=== PATIENT | female | born 1955 | race Caucasian/White ===

== ENCOUNTER 2017-07-25 13:59 | Outpatient (CLI) | payer OTHER | END 2017-07-25 14:00 | disposition home or self-care (01) | LOC: BICMAMMO 13:59 | PROVIDERS: ATTEND Family Medicine | DX: Z12.31 Encounter for screening mammogram for malignant neoplasm of breast (principal) | CPT/HCPCS: 77063; 77067 ==

== ENCOUNTER 2018-08-12 13:14 | Outpatient (CLI) | payer OTHER | END 2018-08-12 13:15 | disposition home or self-care (01) | LOC: BICMAMMO 13:14 | PROVIDERS: ATTEND Family Medicine | DX: Z12.31 Encounter for screening mammogram for malignant neoplasm of breast (principal); R92.1 Mammographic calcification found on diagnostic imaging of breast | CPT/HCPCS: 77063; 77067 ==

== ENCOUNTER 2019-05-11 14:07 | Inpatient (IN) | payer OTHER ==
[2019-05-11] MEDS ORDERED: Aspirin Chewable 81 MG TAB ONE (14:24)
[2019-05-11] MEDS ORDERED: Nitroglycerin 2% Ointment 1 INCH/1 GM Packet ONE (14:24)
[2019-05-11 14:52] LABS: Band 2 % (5-11); Eosinophils 2 % (0-10); Hemoglobin 14.1 g/dL (12.0-16.0); Lymphocytes 2 % (21-51); MDiff Complete? YES; Mean Corpuscular HGB CONC 36.3 g/dL (32.0-36.0); Mean Corpuscular Hemoglobin 30.7 pg (27.0-31.0); Mean Corpuscular Volume 84.4 fL (78.0-98.0); Mean Platelet Volume 7.1 fL (7.4-10.4); Monocytes 8 % (0-10); Neutrophil 85 % (42-75); Platelet Count 346 thou/uL (130-400); Platelet Morphology Comment Appears Adequate; RBC Distribution Width 11.4 % (11.5-14.5); Reactive Lymphocytes 1 % (0-10); Reflex for Review?? YES; Toxic Granulation MODERATE; Vacuoles SLIGHT; White Blood Cell (WBC) Count 22.9 thou/uL (4.8-10.8)
--- NOTE | 2019-05-11 14:56 | RAD ---
RADIOGRAPH CHEST 1 VIEW: DATE: 05/11/2019 HISTORY: 64-year-old female with chest pain FINDINGS: There are no airspace densities, pulmonary edema, pneumothorax, or cardiomegaly. The lateral costophr enic angles are sharp. IMPRESSION: No acute cardiopulmonary findings.
[2019-05-11 15:00] LABS: ALT (SGPT) 55 U/L (8-55); AST (SGOT) 42 U/L (5-34); Albumin 4.3 g/dL (3.4-4.8); Alkaline Phosphatase 79 U/L (40-110); Anion Gap 20 mmol/L (10-20); BUN (Urea Nitrogen) 5 mg/dL (9.8-20.1); Bilirubin, Total 1.1 mg/dL (0.2-1.2); CK (CPK) 99 U/L (29-168); Calc. Creatinine Clearance 0 mL/min (70-130); Calcium 9.5 mg/dL (7.8-10.44); Carbon Dioxide 27 mmol/L (23-31); Estimated GFR-MDRD 86; Globulin 3.1 g/dL (2.4-3.5); Glucose 119 mg/dL (80-115); Lipase 15 U/L (8-78); Protein, Total 7.4 g/dL (6.0-8.3)
[2019-05-11 15:09] LABS: Chloride 72 mmol/L (98-107); Potassium 2.5 mmol/L (3.5-5.1); Sodium 116 mmol/L (136-145)
[2019-05-11] MEDS ORDERED: Potassium Chloride 20 MEQ/100 ML PREMIX BAG ONE (15:15)
[2019-05-11] MEDS ORDERED: Potassium Chloride 20 MEQ TAB ONE (15:15)
[2019-05-11 15:44] LABS: Anion Gap 18 mmol/L (10-20); BUN (Urea Nitrogen) 5 mg/dL (9.8-20.1); Calc. Creatinine Clearance 0 mL/min (70-130); Calcium 9.5 mg/dL (7.8-10.44); Carbon Dioxide 28 mmol/L (23-31); Estimated GFR-MDRD Greater than 90; Glucose 113 mg/dL (80-115)
[2019-05-11 15:46] LABS: Chloride 72 mmol/L (98-107); Magnesium 1.3 mg/dL (1.6-2.6); Phosphorus 3.7 mg/dL (2.3-4.7); Potassium 2.5 mmol/L (3.5-5.1); Sodium 115 mmol/L (136-145)
[2019-05-11 16:38] LABS: Bilirubin Negative (Negative); Blood, Urine Negative (Negative); Clarity Slightly Cloudy (Clear); Glucose, Urine (Dipstick) Negative (Negative); Leukocyte Small (Negative); Nitrite Negative (Negative); Protein, Urine (Dipstick) Trace mg/dL (Neg-Trace); Urobilinogen 0.2 mg/dL (Less than 2)
[2019-05-11 16:41] LABS: RBC/HPF 0-3 HPF (0-3)
[2019-05-11 16:42] LABS: Bacteria/HPF 1+ HPF (None Seen); Squamous Epithelial 0-3 HPF (0-3)
[2019-05-11 17:56] LABS: Troponin I 0.024 ng/mL (< 0.028)
[2019-05-11] MEDS ORDERED: NS 0.9% w/ 20 MEQ KCL 1,000 ML IV SCH (18:15)
[2019-05-11 19:16] LABS: Anion Gap 17 mmol/L (10-20); BUN (Urea Nitrogen) 6 mg/dL (9.8-20.1); Calc. Creatinine Clearance 0 mL/min (70-130); Calcium 9.6 mg/dL (7.8-10.44); Carbon Dioxide 27 mmol/L (23-31); Chloride 75 mmol/L (98-107); Estimated GFR-MDRD 82; Glucose 127 mg/dL (80-115); Potassium 3.2 mmol/L (3.5-5.1)
[2019-05-11 19:23] LABS: Sodium 116 mmol/L (136-145)
[2019-05-11] MEDS ORDERED: Guaifenesin DM 100-10/5 ML UDCUP PO PRN (20:16)
[2019-05-11] MEDS ORDERED: Bisacodyl 10 MG SUPP PR PRN (20:16)
[2019-05-11] MEDS ORDERED: Acetaminophen 325 MG TAB PO PRN (20:16)
[2019-05-11] MEDS ORDERED: Ondansetron PF 4 MG/2 ML Vial IVP PRN (20:16)
[2019-05-11] MEDS ORDERED: Senokot S 8.6-50 MG TAB PO PRN (20:16)
[2019-05-11] MEDS ORDERED: Sodium Chloride 0.9% 1,000 ML IV SCH (20:30)
--- NOTE | 2019-05-11 20:56 | HP ---
REASON FOR ADMISSION: Chest pain, hyponatremia, hypokalemia, hypochloremia, possible urinary tract infection, and sepsis. HISTORY OF PRESENTING ILLNESS: The patient gives history of developing retrosternal chest pain around 11:00 a.m. This was when she got up. This pain was 8/10 in intensity and was radiating to the left shoulder and left upper extremity. She also had some tingling sensation in her fingers. She initially thought this was something to do with the reflex, took a tablet of Prilosec. As the pain did not go away for nearly 2 hours, she made it to [facility] Emergency Room. On arrival at [facility] ER, the patient had multiple electrolyte abnormalities including a sodium of 116, potassium of 2.5, chloride of 72, magnesium was 1.3. No complaints of diarrhea, nausea, or vomiting. She admits to drinking anywhere from 5 to 10 beers daily. She has been doing this for the last 5 to 6 years. The patient also admits that she has had low sodium in the past and has had workup for the same done before. Currently, she is chest pain free. No complaints of shortness of breath, palpitation, PND, or orthopnea. The last stress test was in the early s and was negative as far as she knows. PAST MEDICAL AND SURGICAL HISTORY: History of hypertension, dyslipidemia, obesity, and tonsillectomy. CURRENT MEDICATIONS: The patient is on aspirin 81 mg p.o. daily, Tekturna 150 mg p.o. daily, chlorthalidone 100 mg daily, amlodipine 10 mg daily, Prilosec 20 mg twice daily, and Crestor 10 mg daily. ALLERGIES: TO CEPHALOSPORINS, WHICH CAUSES HEADACHE; IODINE, AND SEA FOOD. PERSONAL HISTORY: Drinks 5 to 10 beers daily. She has been doing this for the last 5 to 6 years now. She quit smoking in 2015, prior to which has smoked a pack and a half for nearly 30 years. Does not abuse drugs. She is currently vaping menthol. FAMILY HISTORY: Mother at the age of 69 years. She has had history of hypertension, carotid endarterectomy, and dyslipidemia. Father of diabetes and its complications at the age of 83. He has also had history of coronary artery disease. CODE STATUS: Full. Power of finance attorney is her . REVIEW OF SYSTEMS: CONSTITUTIONAL: Negative for weight loss or gain, ability to conduct usual activities. SKIN: Negative for rash, itching. EYES: Negative for double vision, pain. ENT/MOUTH: Negative for nose bleeding, neck stiffness, pain, tenderness. CARDIOVASCULAR: Negative for palpitations, dyspnea on exertion, orthopnea. RESPIRATORY: Negative for shortness of breath, wheezing, cough, hemoptysis, fever or night sweats. GASTROINTESTINAL: Negative for poor appetite, abdominal pain, heartburn, nausea , vomiting, constipation, or diarrhea. GENITOURINARY: Negative for urgency, frequency, dysuria, nocturia. MUSCULOSKELETAL: Negative for pain, swelling. NEUROLOGIC/PSYCHIATRIC: Negative for anxiety, depression. ALLERGY/IMMUNOLOGIC: Negative for skin rash, bleeding tendency. PHYSICAL EXAMINATION: GENERAL: The patient is a 64-year-old female, who is currently not in any acute distress. VITAL SIGNS: Blood pressure 113/68, pulse 88 per minute, respiratory rate 18 per minute, temperature 97.8 degrees Fahrenheit, saturating 96% on room air. NECK: Supple. No elevated JVD. HEENT: Eyes; extraocular muscles intact. Pupils reacting to light. Oral cavity, mucous membranes are dry. No exudates or congestion. CARDIOVASCULAR SYSTEM: S1, S2 heard. Regular rhythm,murmur+. RESPIRATORY SYSTEM: Air entry 1+ bilateral. Scattered rhonchi plus no rales or wheezes. ABDOMEN: Soft bowel sounds heard. No tenderness, rigidity, or guarding. EXTREMITIES: No peripheral edema or calf tenderness. VASCULAR SYSTEM: The patient has varicosities in both lower extremities. No ischemic ulcers or gangrene. CENTRAL NERVOUS SYSTEM: No gross focal motor deficits noted. The patient is alert, awake, and oriented well. PSYCHIATRIC SYSTEM: The patient's mood is euthymic. No hallucinations or delusions. LABORATORY DATA: EKG done shows normal sinus rhythm at 90 beats per minute. There are signs of early LVH, questionable Q-waves in V1 and V2. Sodium on arrival was 116, potassium 2.5, chloride 72, serum bicarb 27, BUN 5, creatinine 0.6, magnesium 1.3, phosphorus 3.7, calcium 9.5, and serum glucose 119. Lactic acid 0.7, AST 42, ALT 55, alkaline phosphatase 79, total bilirubin 1.1, troponin I x2 is negative. Albumin is 4.3. TSH 0.97. Serum stat cortisol is 17.3 at 3:25 p.m. UA shows small leukocyte esterase with 4 to 6 wbc's, and 1+ bacteria. Chest x-ray done shows no acute cardiopulmonary abnormalities. CLINICAL IMPRESSION AND PLAN: The patient will be admitted to [facility] for critical low sodium around 116 with hypokalemia, hypochloremia, and hypomagnesemia as well. The patient also has urinary tract infection. Her white count is 22 with 85% neutrophils. She will be on normal saline at 100 mL per hour. The patient has history of alcohol abuse as well. She will follow [facility] protocol. Blood and urine cultures have been obtained and she will be on empiric Levaquin. Serum and urine osmolalities are currently pending. Urine sodium and electrolytes are pending at present. Clinically, the patient has murmur, likely aortic stenosis, and we will obtain an echo with 2D Doppler for further clarification on this. We will continue her aspirin, Norvasc, aliskiren, omeprazole, multivitamin, and Crestor as before. Her chlorthalidone will be held for now. Nephrology consultation with Dr. Ken has been obtained from [facility] Emergency Room. We will repeat TSH levels in the morning. Renal function panel in the morning. We will continue to closely monitor her in [facility] for now. Neurologically, the patient is intact at present. Job ID: [id number] [facility]
[2019-05-11] MEDS ORDERED: Sodium Chloride 256.5 MEQ in Sterile Water Injection 936 ML IV SCH (21:00)
[2019-05-11] MEDS: Potassium Chloride 20 MEQ TAB PO SCH (21:07)
[2019-05-11] MEDS: Magnesium Oxide 400 MG TAB PO SCH (21:08)
[2019-05-11] MEDS: Amlodipine 10 MG TAB PO SCH (21:08)
[2019-05-11] MEDS: Multivitamin W/ Minerals 1 TAB PO SCH (21:08)
[2019-05-11] MEDS: Aspirin 81 mg Enteric Coated Tablet PO SCH (21:08)
[2019-05-11] MEDS: Rosuvastatin 10 MG TAB PO SCH (21:08)
[2019-05-11 21:22] VITALS: BMI 32.1
[2019-05-11 21:22] LABS: Troponin I 0.031 ng/mL (< 0.028)
--- NOTE | 2019-05-11 22:26 | CON ---
DATE OF CONSULTATION: REQUESTING PHYSICIAN: Enrique Duron MD REASON FOR CONSULTATION: Severe hyponatremia. IMPRESSION: Severe hyponatremia likely in the context of chlorthalidone usage; however, cannot completely rule out other potential etiologies including syndrome of inappropriate antidiuretic hormone secretion. PLAN: 1. Obviously discontinue chlorthalidone permanently. 2. Given the fact that we do not know if SIADH is involving the severe hyponatremia and also the fact that the patient is somewhat symptomatic, we will start this patient on hypertonic saline with close monitoring of the sodium level. 3. The patient can be on high-protein diet. HISTORY OF PRESENT ILLNESS: A 64-year-old female patient, who presented with chest discomfort radiating to the left shoulder, tingling sensation, dizziness, on presentation to the ER was noted with severe low sodium of 116. As a result of these, decision was taken to involve Renal in the management of this case. According to the patient, sometime last year when she did a blood work, doctor told her sodium was somewhat low, but no changes were made to the patient's medications. In any case, the patient denies any nausea, vomiting, or diarrhea. The patient is noted to be on chlorthalidone. PAST MEDICAL HISTORY: Significant for hypertension, dyslipidemia, obesity, and status post tonsillectomy. ALLERGIES TO: Cephalosporins, iodine and sea food. SOCIAL HISTORY: Remote tobacco use. Quit in 2014. Denies alcohol; however, drinks 5 to 10 beers on daily basis. FAMILY HISTORY: Not significantly related to present illness. REVIEW OF SYSTEMS: As documented in the body of the history. All the other systems were reviewed and found not to be significantly related to presenting illness. OBJECTIVE: GENERAL: On examination, the patient was found not to be in any obvious distress. VITAL SIGNS: Afebrile, temperature 97.7, hemodynamically stable. HEENT: Unremarkable. CARDIOVASCULAR: First and second heart sounds were heard. RESPIRATORY SYSTEM: Clear to auscultation. DIGESTIVE SYSTEM: Revealed a benign abdomen. Positive bowel sounds. EXTREMITIES: No peripheral edema. SKIN: No new gross rash. LYMPHATICS: No peripheral lymphadenopathy. SUMMARY: A 64-year-old female patient, who presented here with severe hyponatremia, possibly in the context of chlorthalidone usage, but cannot completely rule out other potential etiologies including, but not limited to SIADH and beer potomania. Thank you for this consultation. We will follow with you. Job ID: [id number]
[2019-05-11 23:05] LABS: Potassium, Urine Less than 10.0 mmol/L; Sodium, Urine Less than 20 mmol/L (Not Available)
[2019-05-11 23:26] LABS: Sodium 119 mmol/L (136-145)
[2019-05-12] MEDS: Potassium Chloride 20 MEQ TAB PO SCH ×2 (02:07→09:14)
[2019-05-12] MEDS ORDERED: Sodium Chloride 256.5 MEQ in Sterile Water Injection 936 ML IV SCH (03:15)
[2019-05-12 06:41] LABS: Anion Gap 13 mmol/L (10-20); BUN (Urea Nitrogen) 8 mg/dL (9.8-20.1); BUN/Creatinine Ratio 10.67; Calc. Creatinine Clearance 107 mL/min (70-130); Carbon Dioxide 29 mmol/L (23-31); Chloride 86 mmol/L (98-107); Estimated GFR-MDRD 78; Glucose 107 mg/dL (80-115); Phosphorus 2.5 mg/dL (2.3-4.7); Potassium 3.5 mmol/L (3.5-5.1); Sodium 124 mmol/L (136-145)
[2019-05-12 07:26] LABS: #Basophils 0.1 thou/uL (0.0-0.2); #Eosinphils 0.1 thou/uL (0.0-0.7); #Lymphocytes 1.6 thou/uL (1.20-3.40); #Neutrophils 6.7 thou/uL (1.40-6.50); %Basophils 0.8 % (0.0-1.0); %Eosinophils 1.3 % (0.0-10.0); %Lymphocytes 16.7 % (21.0-51.0); %Monocytes 10.5 % (0.0-10.0); %Neutrophils 70.7 % (42.0-75.0); Hemoglobin 12.4 g/dL (12.0-16.0); Mean Corpuscular Hemoglobin 30.7 pg (27.0-31.0); Mean Corpuscular Volume 87.8 fL (78.0-98.0); Mean Platelet Volume 7.3 fL (7.4-10.4); Platelet Count 314 thou/uL (130-400); RBC Distribution Width 12.8 % (11.5-14.5); Red Blood Cell (RBC) Count 4.04 mill/uL (4.20-5.40); White Blood Cell (WBC) Count 9.5 thou/uL (4.8-10.8)
[2019-05-12] MEDS ORDERED: Enoxaparin Sodium 40 MG/0.4 ML SYRINGE SC SCH (09:00)
[2019-05-12] MEDS ORDERED: FLU VACC QS2019-20(6MOS UP)/PF 60 MCG/0.5 ML SYRINGE IM ONE (09:00)
[2019-05-12] MEDS: Magnesium Oxide 400 MG TAB PO SCH ×2 (09:14→21:09)
[2019-05-12] MEDS: Folic Acid 1 MG TAB PO SCH (09:14)
[2019-05-12] MEDS: Thiamine 100 MG TAB PO SCH (09:14)
[2019-05-12] MEDS: Aliskiren Hemifumarate 300 mg Tablet PO SCH (09:14)
[2019-05-12] MEDS: Sodium Chloride 256.5 MEQ in Sterile Water Injection 936 ML IV SCH (09:46)
--- NOTE | 2019-05-12 10:14 | CON ---
DATE OF CONSULTATION: HISTORY OF PRESENT ILLNESS: Antoinette Rivas is a 64-year-old female, who was admitted to the hospital. She woke up and had severe epigastric, abdominal and chest pain associated with some shortness of breath. Also had some left shoulder pain, arm pain, numbing and tingling. She was found to have serum sodium of 116 with a urine sodium less than 20, suggestive of volume depletion probably secondary to diuretic that she is taking. She is a former smoker, a pack and half a day for 30 years. No prior history of TB, pneumonia, or bronchial asthma. PAST MEDICAL HISTORY: Hypertension, probably history of murmur. PREVIOUS SURGERIES: Tonsillectomy. SOCIAL HISTORY: Tobacco as noted. Alcohol, 5 to 6 beers a day. HOME MEDICATIONS: Include: 1. Nasacort. 2. B12. 3. Cranberry. 4. Tekturna 300. 5. Crestor 10. 6. Prilosec 20. 7. Chlorthalidone 25. 8. Aspirin. 9. Amlodipine 10. ALLERGIES: IODINE, CEPHALOSPORIN. 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 REVIEW OF SYSTEMS: 10-point negative. PHYSICAL EXAMINATION: GENERAL: No acute distress. VITAL SIGNS: Temperature 97, blood pressure 109/71, pulse respiratory rate 18. CHEST: No wheezing. No crackles. CARDIAC: Normal S1 and S2. No gallops. Loud aortic stenotic murmur all over the right upper sternal border and neck. ABDOMEN: Soft. Extremities: No edema. LABORATORY DATA: Sodium is 124 today. She was started on hypertonic saline by Nephrology who was consulted. IMPRESSION: Hyponatremia, volume depleted. No evidence of SIADH. Aortic stenosis. Hypertension. More than likely sodium due to the diuretic she is taking. Continue slow hydration. Supportive care. Input from Cardiology. We will follow while in the MICU. Consultation note, 70 minutes, 50% direct patient care. Job ID: [id number]
[2019-05-12 12:17] LABS: Sodium 127 mmol/L (136-145)
--- NOTE | 2019-05-12 14:01 | PDOC.HOSPP ---
- Subjective Encounter Date: 05/12/19 Encounter Time: 08:00 Subjective: awake, responds well to verbal stimuli - Objective Vital Signs & Weight: Vital Signs (12 hours) Temp BP 05/12/19 11:15 97.3 F L 05/12/19 07:53 109/71 05/12/19 07:24 97.8 F 05/12/19 04:00 99/71 05/12/19 03:29 98.4 F Weight Weight 193 lb Most Recent Monitor Data Heart Rate from ECG 93 NIBP 146/74 NIBP BP-Mean 98 Respiration from ECG 15 SpO2 94 I&O: 05/11/19 05/12/19 05/13/19 06:59 06:59 06:59 Intake Total 1413 Output Total 3000 Balance -1587 Result Diagrams: 05/12/19 05:28 05/12/19 11:45 Hospitalist ROS - Medication Medications: Active Medications Generic Name Dose Route Start Last Admin Trade Name Freq PRN Reason Stop Dose Admin Aliskiren 300 mg 05/12/19 09:00 05/12/19 09:14 Tekturna PO 300 mg DAILY JOSSE Administration Amlodipine Besylate 10 mg 05/11/19 21:00 05/11/19 21:08 Norvasc PO 10 mg QPM JOSSE Administration Aspirin 81 mg 05/11/19 21:00 05/11/19 21:08 Ecotrin PO Not Given QPM JOSSE Enoxaparin Sodium 40 mg 05/12/19 09:00 05/12/19 09:14 Lovenox SC 40 mg 0900 JOSSE Administration Folic Acid 1 mg 05/12/19 09:00 05/12/19 09:14 Folvite PO 1 mg DAILY JOSSE Administration Levofloxacin 500 mg/ Device 100 mls @ 100 mls/hr 05/11/19 21:00 05/11/19 21: 06 IVPB 100 mls 2100 JOSSE Administration Sodium Chloride 256.5 meq/ 1,000.125 mls @ 50 mls/hr 05/12/19 09:18 05/12/19 09:46 Sterile Water IV Not Given .Q20H1M JOSSE Iron/Minerals/Multivitamins 1 tab 05/11/19 21:00 05/11/19 21:08 Theragran M PO 1 tab QPM JOSSE Administration Magnesium Oxide 400 mg 05/11/19 21:00 05/12/19 09:14 Magnesium Oxide PO 400 mg BID JOSSE Administration Pantoprazole Sodium 40 mg 05/11/19 21:00 05/12/19 09:14 Protonix PO 40 mg BID JOSSE Administration Rosuvastatin Calcium 10 mg 05/11/19 21:00 05/11/19 21:08 Crestor PO 10 mg QPM JOSSE Administration Thiamine HCl 100 mg 05/12/19 09:00 05/12/19 09:14 Thiamine PO 100 mg DAILY JOSSE Administration - Exam General Appearance: NAD, awake alert Eye: PERRL, anicteric sclera ENT: no oropharyngeal lesions, moist mucosa Neck: supple, no JVD Heart: RRR, no gallops, murmur present Respiratory: no wheezes, no rales Gastrointestinal: soft, non-tender, non-distended, normal bowel sounds Extremities: no cyanosis, no edema Neurological: cranial nerve grossly intact, no focal deficits Psychiatric: normal affect, A&O x 3 Hosp A/P (1) Hyponatremia Code(s): E87.1 - HYPO-OSMOLALITY AND HYPONATREMIA Status: Acute (2) Hypokalemia Code(s): E87.6 - HYPOKALEMIA Status: Acute (3) Hypochloremia Code(s): E87.8 - OTH DISORDERS OF ELECTROLYTE AND FLUID BALANCE, NEC Status: Acute (4) Dehydration Code(s): E86.0 - DEHYDRATION Status: Acute (5) UTI (urinary tract infection) Status: Acute Qualifiers: Urinary tract infection type: acute cystitis Hematuria presence: without hematuria Qualified Code(s): N30.00 - Acute cystitis without hematuria (6) Aortic stenosis, severe Code(s): I35.0 - NONRHEUMATIC AORTIC (VALVE) STENOSIS Status: Acute (7) HTN (hypertension) Code(s): I10 - ESSENTIAL (PRIMARY) HYPERTENSION Status: Chronic Qualifiers: Hypertension type: essential hypertension Qualified Code(s): I10 - Essential (primary) hypertension (8) Obesity (BMI 30.0-34.9) Code(s): E66.9 - OBESITY, UNSPECIFIED Status: Chronic (9) Dyslipidemia Code(s): E78.5 - HYPERLIPIDEMIA, UNSPECIFIED Status: Chronic - Plan echo shows severe with valve area of 0.5 and severely elevated gradients is on 1.5% NS, may dc if ok with nephrology, sod is up now at 124 hemo/neurostable electrolytes are being corrected continue aspirin, alliskirin, norvasc, crestor and protonix Likely will need cath and valve replacement, await cardiology opinion.
--- NOTE | 2019-05-12 14:59 | PRG ---
DATE OF SERVICE: 05/12/2019 SUBJECTIVE: The patient is seen, very eager to go home. Noted with the following vital signs. OBJECTIVE: VITAL SIGNS: Afebrile, blood pressure 146/74, heart rate of 93, respiratory rate of 16, and O2 saturations 94%. HEENT: Unremarkable. CARDIOVASCULAR SYSTEM: First and second heart sounds were heard. RESPIRATORY: Clear to auscultation. DIGESTIVE SYSTEM: Revealed a benign abdomen. CARDIOVASCULAR SYSTEM: Significant for a systolic of murmur of aortic stenosis. LABORATORY INVESTIGATION: Showed a sodium that has been up to 127. IMPRESSION: Hyponatremia, likely in the context of beer potomania compounded by diuretic usage, in this case is thiazide. PLAN: 1. Once the sodium level gets up to 128-130, can safely discontinue the hypertonic saline and continue with high-protein intake. 2. The patient has been counseled on the need to stay away from alcohol. 3. Permanently discontinue the thiazide diuretic that this patient was on. Job ID: [id number]
[2019-05-12] MEDS ORDERED: Communication Order-Pharmacy FS SCH (17:00)
[2019-05-12] MEDS ORDERED: diphenhydrAMINE 50 MG/ML VIAL IVP SCH (17:15)
[2019-05-12 18:08] LABS: Sodium 126 mmol/L (136-145)
[2019-05-12] MEDS: predniSONE 20 MG TAB PO SCH (18:27)
[2019-05-12] MEDS: Rosuvastatin 10 MG TAB PO SCH (21:09)
[2019-05-12] MEDS: Amlodipine 10 MG TAB PO SCH (21:09)
[2019-05-12] MEDS: Aspirin 81 mg Enteric Coated Tablet PO SCH (21:09)
[2019-05-12] MEDS: Multivitamin W/ Minerals 1 TAB PO SCH (21:09)
--- NOTE | 2019-05-12 23:18 | CON ---
DATE OF CONSULTATION: 05/12/2019 INDICATION FOR CONSULTATION: A 64-year-old female who was admitted after she had an episode of chest discomfort and also abdominal discomfort radiating to the left shoulder. She was admitted to the hospital and further workup showed that she was hyponatremic. After she complains of chest discomfort, she had an EKG which did not show any significant changes. She does have risk factors for coronary artery disease, which include tobacco abuse as well as hypertension. She had an echocardiogram performed today which shows what appears to be severe aortic valve stenosis with a well-preserved left ventricular systolic function. At this time, she denies any chest pain. She does admit to being somewhat short of breath when she exerts herself, but otherwise has remained without any previous complaints of chest discomfort or pain. Her EKG does show some evidence of left ventricular hypertrophy, but no ischemic changes were noted. Her cardiac enzymes on admission showed a troponin I of 0.024, increased up to 0.031, still very nonspecific and indeterminate. Her sodium has actually increased from 115 on admission to 127 at 11 a.m. this morning. She has been given I believe saline solution. She denies any chest pain at this time and her symptoms have seem to have resolved, but certainly concerning for the chest tightness and the left arm discomfort as well as what appears to be severe aortic valve stenosis. PAST MEDICAL HISTORY: Significant for hypertension, history of murmur. She has had a tonsillectomy. Otherwise, she has been relatively healthy. SOCIAL HISTORY: She is a smoker. She lives with her . She drinks 5 or 6 beers a day. 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 HOME MEDICATIONS: Prior to admission included, 1. Nasacort. 2. B12. 3. Tekturna 300 mg a day. 4. Crestor. 5. Prilosec. 6. Chlorthalidone. 7. Aspirin. 8. Amlodipine. 9. Cranberry. ALLERGIES: SHE IS ALLERGIC TO IODINE AND CEPHALOSPORIN. REVIEW OF SYSTEMS: A 12-point review of systems is unremarkable except as noted in the history of present illness. PHYSICAL EXAMINATION: GENERAL: Reveals a well-developed, well-nourished female, somewhat overweight. VITAL SIGNS: Blood pressure is 103/64, heart rate is 88 and regular. She is afebrile. Respiratory rate is 15. HEENT: Shows the head to be normocephalic and atraumatic. Carotid pulses are present. She has radiation of the aortic area up into the carotids. CHEST: Clear to auscultation. CARDIOVASCULAR: Reveals a regular rate and rhythm with a harsh systolic murmur over the entire precordium, the lateral side of the aortic area. There are no heaves or thrills otherwise noted. ABDOMEN: Shows obesity with positive bowel sounds. No organomegaly or tenderness is noted. No masses or tenderness is noted. EXTREMITIES: Show no clubbing or cyanosis. No edema is noted. Popliteal pulses are present, but I could not palpate pedal pulses. Radial pulses are present. NEUROLOGIC: She appears to be fully intact. LABORATORY DATA: As noted above, her sodium is now 127 with a potassium of 3.5, glucose was 107, BUN was 8, and creatinine 0.75. Her BNP was 322. Hemoglobin was 12.4, WBC of 9.5. EKG is noted above. IMPRESSION: 1. Hyponatremia, which appears to be improving. We will continue the present medications. 2. Severe aortic valve stenosis. The patient should undergo a cardiac catheterization to evaluate the valvar status as well as her coronaries. 3. Chest pain, this certainly could be due to underlying coronary artery disease with her history of tobacco abuse. She stopped smoking only a few years ago, but previous to that, smoked a half a pack a day for quite some time and I have advised her to undergo cardiac catheterization. I have explained the procedure and the risks to her to include bleeding, infection, possible myocardial infarction, cerebrovascular accident, renal insufficiency, allergic contrast reaction, and the possibility of . However, I did notice that she says that she is allergic to iodine. We will need to premedicate the patient prior to cardiac catheterization. 4. History of hypertension, under good control at this time. 5. History of hypercholesterolemia. She is on Crestor. We will continue that medication. 6. Gastroesophageal reflux disease. She will continue her present medications and this will be dealt with by the primary care service. Job ID: [id number]
[2019-05-13] MEDS: predniSONE 20 MG TAB PO SCH (05:40)
[2019-05-13] MEDS: Folic Acid 1 MG TAB PO SCH (05:40)
[2019-05-13] MEDS: Aliskiren Hemifumarate 300 mg Tablet PO SCH (05:40)
[2019-05-13] MEDS: Thiamine 100 MG TAB PO SCH (05:40)
[2019-05-13] MEDS: Magnesium Oxide 400 MG TAB PO SCH ×2 (05:40→21:00)
[2019-05-13] MEDS ORDERED: Lidocaine 1% (PF) 30 ML VIAL ONE (06:51)
[2019-05-13] MEDS ORDERED: Heparin (Artline) 1,500 ML ONE (06:51)
[2019-05-13 07:16] LABS: Anion Gap 15 mmol/L (10-20); BUN (Urea Nitrogen) 6 mg/dL (9.8-20.1); Calc. Creatinine Clearance 123 mL/min (70-130); Calcium 9.5 mg/dL (7.8-10.44); Carbon Dioxide 24 mmol/L (23-31); Chloride 93 mmol/L (98-107); Estimated GFR-MDRD 85; Glucose 137 mg/dL (80-115); Potassium 3.5 mmol/L (3.5-5.1); Sodium 128 mmol/L (136-145)
[2019-05-13] MEDS ORDERED: diphenhydrAMINE 50 MG/ML VIAL ONE (07:37)
[2019-05-13] MEDS ORDERED: Midazolam HCl 2 mg/2 ml Vial ONE (07:38)
[2019-05-13] MEDS ORDERED: Nitroglycerin 0.4 MG TAB (25 Tab Bottle) SL PRN (09:45)
[2019-05-13] MEDS ORDERED: Acetaminophen/Codeine 30-300mg Tablet PO PRN ×2 (09:45)
[2019-05-13] MEDS ORDERED: Sodium Chloride 0.9% 200 ML IV PRN (09:45)
[2019-05-13] MEDS ORDERED: Iopamidol 370 76% 100 ML VIAL ONE (13:13)
[2019-05-13] MEDS: Sodium Chloride 256.5 MEQ in Sterile Water Injection 936 ML IV SCH (15:51)
--- NOTE | 2019-05-13 16:57 | PDOC.HOSPP ---
- Subjective Encounter Date: 05/13/19 Encounter Time: 10:45 Subjective: had cath this am no sob or chest pain or palp - Objective Vital Signs & Weight: Vital Signs (12 hours) Temp BP Pulse Ox 05/13/19 16:25 97.8 F 05/13/19 12:00 122/72 05/13/19 11:10 97.6 F 05/13/19 09:40 98.4 F 05/13/19 07:43 99 05/13/19 07:38 136/85 Weight Weight 206 lb 12.8 oz Most Recent Monitor Data Heart Rate from ECG 90 NIBP 122/72 NIBP BP-Mean 88 Respiration from ECG 17 SpO2 97 I&O: 05/12/19 05/13/19 05/14/19 06:59 06:59 06:59 Intake Total 1413 2934 Output Total 3000 2550 750 Balance -1587 384 -750 Result Diagrams: 05/12/19 05:28 05/13/19 06:42 Hospitalist ROS - Medication Medications: Active Medications Generic Name Dose Route Start Last Admin Trade Name Salvatoreq PRN Reason Stop Dose Admin Aliskiren 300 mg 05/12/19 09:00 05/13/19 05:40 Tekturna PO 300 mg DAILY JOSSE Administration Amlodipine Besylate 10 mg 05/11/19 21:00 05/12/19 21:09 Norvasc PO 10 mg QPM JOSSE Administration Aspirin 81 mg 05/11/19 21:00 05/12/19 21:09 Ecotrin PO 81 mg QPM JOSSE Administration Folic Acid 1 mg 05/12/19 09:00 05/13/19 05:40 Folvite PO 1 mg DAILY JOSSE Administration Sodium Chloride 256.5 meq/ 1,000.125 mls @ 50 mls/hr 05/12/19 09:18 05/13/19 15:51 Sterile Water IV Not Given .Q20H1M JOSSE Iron/Minerals/Multivitamins 1 tab 05/11/19 21:00 05/12/19 21:09 Theragran M PO 1 tab QPM JOSSE Administration Magnesium Oxide 400 mg 05/11/19 21:00 05/13/19 05:40 Magnesium Oxide PO 400 mg BID JOSSE Administration Pantoprazole Sodium 40 mg 05/11/19 21:00 05/13/19 05:40 Protonix PO 40 mg BID JOSSE Administration Rosuvastatin Calcium 10 mg 05/11/19 21:00 05/12/19 21:09 Crestor PO 10 mg QPM JOSSE Administration Thiamine HCl 100 mg 05/12/19 09:00 05/13/19 05:40 Thiamine PO 100 mg DAILY JOSSE Administration - Exam General Appearance: awake alert Eye: PERRL, anicteric sclera ENT: no oropharyngeal lesions, moist mucosa Neck: supple, no JVD Heart: RRR, murmur present Respiratory: no wheezes, no rales Gastrointestinal: soft, non-tender, non-distended, normal bowel sounds Extremities: no cyanosis, no edema Neurological: cranial nerve grossly intact, no focal deficits Psychiatric: normal affect, A&O x 3 Hosp A/P (1) Hyponatremia Code(s): E87.1 - HYPO-OSMOLALITY AND HYPONATREMIA Status: Resolved (2) Hypokalemia Code(s): E87.6 - HYPOKALEMIA Status: Resolved (3) Hypochloremia Code(s): E87.8 - OTH DISORDERS OF ELECTROLYTE AND FLUID BALANCE, NEC Status: Resolved (4) Dehydration Code(s): E86.0 - DEHYDRATION Status: Resolved (5) UTI (urinary tract infection) Status: Acute Qualifiers: Urinary tract infection type: acute cystitis Hematuria presence: without hematuria Qualified Code(s): N30.00 - Acute cystitis without hematuria (6) Aortic stenosis, severe Code(s): I35.0 - NONRHEUMATIC AORTIC (VALVE) STENOSIS Status: Acute (7) HTN (hypertension) Code(s): I10 - ESSENTIAL (PRIMARY) HYPERTENSION Status: Chronic Qualifiers: Hypertension type: essential hypertension Qualified Code(s): I10 - Essential (primary) hypertension (8) Obesity (BMI 30.0-34.9) Code(s): E66.9 - OBESITY, UNSPECIFIED Status: Chronic (9) Dyslipidemia Code(s): E78.5 - HYPERLIPIDEMIA, UNSPECIFIED Status: Chronic - Plan had cath, shows normal coronaries, severe , await cardio advice echo shows severe with valve area of 0.5 and severely elevated gradients hemo/neurostable electrolytes are being corrected, dc 1.5% NS continue aspirin, alliskirin, norvasc, crestor and protonix May tx to telemetry
--- NOTE | 2019-05-13 19:02 | PRG ---
DATE OF SERVICE: 05/13/2019 SUBJECTIVE: The patient is noted with the following vital signs. OBJECTIVE: VITAL SIGNS: Blood pressure 134/72, pulse of 86, respiratory rate of 14, O2 saturation of 93%. HEENT: Unremarkable. CARDIOVASCULAR: First and second heart sounds were heard. RESPIRATORY: Clear to auscultation. DIGESTIVE: Revealed a benign abdomen with positive bowel sounds. EXTREMITIES: No peripheral edema. SKIN: No new gross rash. LYMPHATICS: No peripheral lymphadenopathy. LABORATORY INVESTIGATION: Showed a sodium of 128. IMPRESSION: Hyponatremia in the context of beer potomania compounded by thiazide diuretic usage. PLAN: 1. We will discontinue the hypertonic saline. 2. Increase protein intake in the way of meat. 3. Counseled on the need to avoid alcohol abuse. 4. Permanently discontinue thiazide diuretic. 5. Further management to be dependent on the clinical course. Job ID: [id number]
[2019-05-13] MEDS: Amlodipine 10 MG TAB PO SCH (20:59)
[2019-05-13] MEDS: Rosuvastatin 10 MG TAB PO SCH (21:00)
[2019-05-13] MEDS: Aspirin 81 mg Enteric Coated Tablet PO SCH (21:00)
[2019-05-13] MEDS: Multivitamin W/ Minerals 1 TAB PO SCH (21:00)
[2019-05-14 05:50] LABS: Anion Gap 13 mmol/L (10-20); BUN (Urea Nitrogen) 8 mg/dL (9.8-20.1); Calc. Creatinine Clearance 109 mL/min (70-130); Calcium 9.8 mg/dL (7.8-10.44); Carbon Dioxide 30 mmol/L (23-31); Chloride 93 mmol/L (98-107); Estimated GFR-MDRD 74; Glucose 113 mg/dL (80-115); Potassium 3.3 mmol/L (3.5-5.1); Sodium 133 mmol/L (136-145)
[2019-05-14 07:36] VITALS: TEMP 97.5
[2019-05-14 08:19] VITALS: BP 130/61
[2019-05-14] MEDS: Thiamine 100 MG TAB PO SCH (10:22)
[2019-05-14] MEDS: Aliskiren Hemifumarate 300 mg Tablet PO SCH (10:22)
[2019-05-14] MEDS: Folic Acid 1 MG TAB PO SCH (10:22)
[2019-05-14] MEDS: Magnesium Oxide 400 MG TAB PO SCH (10:22)
--- NOTE | 2019-05-14 10:57 | PDOC.CPN ---
- Subjective Date: 05/14/19 Time: 08:30 Interval history: The pt seen and examined. No overnight events. No cardiac complaints. - Objective Allergies/Adverse Reactions: Allergies Allergy/AdvReac Type Severity Reaction Status Date / Time iodine Allergy Severe THROAT Verified 02/19/15 13:48 SWELLING, HIVES Cephalosporins Allergy Verified 05/11/19 22:55 SEAFOOD Allergy Severe RASH, Uncoded 02/19/15 13:48 SWELLING Visit Medications: Current Medications Acetaminophen (Tylenol) 650 mg PO Q4H PRN PRN Reason: Headache/Fever/Mild Pain (1-3) Acetaminophen/Codeine Phosphate (Tylenol #3) 1 tab PO Q4H PRN PRN Reason: Mild Pain (1-3) Acetaminophen/Codeine Phosphate (Tylenol #3) 2 tab PO Q4H PRN PRN Reason: Moderate Pain (4-6) Aliskiren (Tekturna) 300 mg PO DAILY [facility] Last Admin: 05/14/19 10:22 Dose: 300 mg Amlodipine Besylate (Norvasc) 10 mg PO QPM [facility] Last Admin: 05/13/19 20:59 Dose: 10 mg Aspirin (Ecotrin) 81 mg PO QPM [facility] Last Admin: 05/13/19 21:00 Dose: 81 mg Bisacodyl (Dulcolax) 10 mg RI DAILYPRN PRN PRN Reason: Constipation Folic Acid (Folvite) 1 mg PO DAILY [facility] Last Admin: 05/14/19 10:22 Dose: 1 mg Guaifenesin/Dextromethorphan (Robitussin Dm) 15 ml PO Q4H PRN PRN Reason: Cough Iron/Minerals/Multivitamins (Theragran M) 1 tab PO QPM [facility] Last Admin: 05/13/19 21:00 Dose: 1 tab Levofloxacin (Levaquin) 500 mg PO 0600 [facility] Last Admin: 05/14/19 05:13 Dose: 500 mg Magnesium Oxide (Magnesium Oxide) 400 mg PO BID [facility] Last Admin: 05/14/19 10:22 Dose: 400 mg Nitroglycerin (Nitrostat) 0.4 mg SL Q5MIN PRN PRN Reason: Chest Pain Ondansetron HCl (Zofran) 4 mg IVP Q6H PRN PRN Reason: Nausea/Vomiting Pantoprazole Sodium (Protonix) 40 mg PO BID [facility] Last Admin: 05/14/19 10:22 Dose: 40 mg Potassium Chloride (K-Dur) 40 meq PO ONE JOSSE Rosuvastatin Calcium (Crestor) 10 mg PO QPM [facility] Last Admin: 05/13/19 21:00 Dose: 10 mg Senna/Docusate Sodium (Senokot S) 2 tab PO BIDPRN PRN PRN Reason: Constipation Thiamine HCl (Thiamine) 100 mg PO DAILY [facility] Last Admin: 05/14/19 10:22 Dose: 100 mg Vital Signs & Weight: Vital Signs Temp BP 05/14/19 08:00 130/61 05/14/19 07:35 97.5 F L 05/14/19 04:00 97.8 F 105/49 L 05/14/19 00:05 128/70 05/13/19 23:59 97.3 F L Weight 206 lb 12.8 oz - Physical Exam General: alert & oriented x3 HEENT: mucus membranes moist Neck: supple neck Cardiac: regular rate and rhythm, S1/S2 Lungs: clear to auscultation Neuro: cranial nerve 2-12 intact Abdomen: unremarkable Extremities: no cyanosis Skin: clear - Labs Result Diagrams: 05/12/19 05:28 05/14/19 05:01 Troponin/CKMB Troponin I 0.031 ng/mL (< 0.028) H 05/11/19 20:31 - Assessment/Plan Assessment/Plan: 1. Severe with ALANA 0.4 cm2 and valve area 0.5 sq cm - will send cath report to [place] for possible AV replacement with TAVR. 2. Hyponatremia - improving; managed by residential coordinator 3. HTN - stable 4. HLD 5. Smoker 6. ETOH abuse MAR reviewed * Echo on 05/12/2019 with EF 55-60%, mod MR, mild-mod AR with heavy calcification, severe with valve area 0.5 sq cm and peak gradient 100mmHg * LHC on 05/13/2019 with normal coronary arteries with ALANA 0.4cm2
[2019-05-14] MEDS ORDERED: Potassium Chloride 20 MEQ TAB PO SCH (11:00)
--- NOTE | 2019-05-14 18:50 | PRG ---
DATE OF SERVICE: 05/14/2019 SUBJECTIVE: Antoientte Rivas, noted with the following vital signs. OBJECTIVE: VITAL SIGNS: Afebrile, temperature 97.5, pulse 77, blood pressure of 117/59, respiratory rate of 18, O2 saturation 94%. HEENT: Unremarkable. CARDIOVASCULAR: First and second heart sounds were heard. RESPIRATORY: Clear to auscultation. DIGESTIVE: Benign abdomen. EXTREMITIES: No peripheral edema. SKIN: No new gross rash. LYMPHATICS: No peripheral lymphadenopathy. LABORATORY INVESTIGATION: Sodium of 133, potassium 3.3. IMPRESSION: 1. Hyponatremia in the context of beer potomania compounded by thiazide diuretic usage. 2. Mild hypokalemia. PLAN: 1. Replete potassium. 2. Counseled on the need to stay away from alcohol. 3. Permanently discontinue chlorthalidone. 4. Further management to be dependent on the clinical course. Job ID: [id number]
--- NOTE | 2019-05-15 14:20 | DIS ---
DATE OF ADMISSION: 05/11/2019 DATE OF DISCHARGE: 05/14/2019 DISCHARGE DISPOSITION: To home. PRIMARY DISCHARGE DIAGNOSES: Severe aortic stenosis, multiple electrolyte abnormalities on arrival with hypokalemia, severe hyponatremia, hypochloremia, moderate dehydration, urinary tract infection, obesity, hypertension, dyslipidemia. PROCEDURES DONE DURING HOSPITALIZATION: Cardiac catheterization done showed normal coronaries. Ejection fraction of more than 65%. Cardiac output was 3.4 L/ minute. Severe aortic stenosis without regurgitation. Aortic valve area was 0.4 cm2. Echo with 2D Doppler showed EF of 55% to 60%, moderate mitral regurgitation was present, severe aortic stenosis with valve area of 0.5 sq cm. Peak gradient was 100 mmHg. Blood cultures x2, no growth. Urine culture was contaminated. Had a white count of 22 on arrival. Discharge white count of 9.5, H and H of 12 and 35, platelet count 314. Discharge sodium levels are 133 with potassium of 3.3, bicarb of 30, BUN 8 , creatinine 0.7, TSH 1.68. Admitting sodium was 116, potassium 2.5, serum chloride 72, serum osmolality 244. Urine osmolality was 67. Urine sodium less than 20. ALLERGIES: ALLERGIC TO CEPHALOSPORIN AND IODINE. INPATIENT CONSULT: Dr. Leigh for Cardiology, Dr. Ken for Nephrology. DISCHARGE PLAN: The patient to follow up with Dr. Stevie Gutierrez, her primary care physician in 1 week. She needs to follow up with Dr. Leigh in 3 to 4 weeks. She also needs to follow up with intervention rn primary care for TAVR, which will be arranged by Dr. Leigh. BRIEF COURSE DURING HOSPITALIZATION: The patient initially got admitted on the with complaints of chest pain. On arrival, the patient had multiple electrolyte abnormalities including hyponatremia, hypokalemia, hypochloremia, UTI, possible sepsis with white count of 22. The patient also was on chlorthalidone. In view of this history, the patient was admitted to [facility]. She was placed on 3% sodium chloride and had this titrated down to 1.5% only after 24 hours. Her sodium is stabilized. The patient also admitted to drinking around 5 beers daily. In view of multiple contributing factors for hyponatremia, the patient was closely monitored. She has remained neurologically stable. On clinical exam, the patient had murmur of aortic stenosis and had an echo done, which showed severe aortic stenosis. The patient had a cardiac consultation with Dr. Leigh. Cardiac catheterization done showed normal coronaries with severe aortic stenosis. The patient is being referred to sample collector in [place] for TAVR. This will be arranged by Dr. Leigh' office. She is ambulating and eating well prior to discharge. Please note, I have seen and examined the patient on the day of discharge. Job ID: [id number] MTDD
--- NOTE | 2019-05-16 07:10 | PQF ---
ANGELITA GOYAL VINAYA KUMAR MD [id number] [id number] CLINICAL DOCUMENTATION CLARIFICATION FORM: POST DISCHARGE Addendum to original discharge summary date: ____ Late entry note date: __ DATE:05/16/2019 ATTN: DIALLO BOLAÑOS MD Please exercise your independent, professional judgment in responding to the clarification form. Clinical indicators are provided on the bottom of this form for your review Please check appropriate box(s) to clarify if the following diagnosis has been ruled in or ruled out:Sepsis [ x ] Ruled in diagnosis [ ] Continue to treat [ x] Resolved [ ] Ruled out diagnosis [ ] Cannot rule out diagnosis [ ] Other diagnosis [ ] Unable to determine In addition, please specify: Present on Admission (POA): [ x] Yes [ ] No [ ] Unable to determine For continuity of documentation, please document condition throughout progress notes and discharge summary. Thank You. CLINICAL INDICATORS - SIGNS / SYMPTOMS / LABS Sepsis-Documented in H&P on 05/11 by Diallo Bolaños Her white count is 22 with 85% neutrophils-Documented in H&P on 05/11 by Diallo Bolaños Urinary tract infection-Documented in DS on 05/14 by Diallo Bolaños Possible sepsis with white count of 22- Documented in DS on 05/14 by Diallo Bolaños Urine culture -<10,000 Cfu/ML mixed skin royce present-Documented in microbiology RISK FACTORS Urinary tract infection-Documented in DS on 05/14 by Diallo Bolaños HTN-Documented in DS on 05/14 by Diallo Bolaños TREATMENTS She will be on empiric Levaquin-Documented in H&P on 05/11 by Jagadeeshan, Vinaya kuma [employer] Coordinator [employer] Win[employer] Viewer(This form is maintained as a part of the permanent medical record) 2014 [employer]. All Rights Reserved [email or web address] [not provided] MTDD
== END 2019-05-14 14:02 | disposition home or self-care (01) | DRG 872 ==
LOC: SCSER 14:07 → IMCU/EMU 16:31
PROVIDERS: ADMIT Internal Medicine; ATTEND Internal Medicine
PROC: 4A023N8 Measurement of Cardiac Sampling and Pressure, Bilateral, Percutaneous Approach (ICD-10-PCS; principal; 2019-05-13)
PROC: B2111ZZ Fluoroscopy of Multiple Coronary Arteries using Low Osmolar Contrast (ICD-10-PCS; 2019-05-13)
DX: A41.9 Sepsis, unspecified organism (principal); E87.1 Hypo-osmolality and hyponatremia; N30.00 Acute cystitis without hematuria; I35.0 Nonrheumatic aortic (valve) stenosis; E86.0 Dehydration; E87.8 Other disorders of electrolyte and fluid balance, not elsewhere classified; E83.42 Hypomagnesemia; I10 Essential (primary) hypertension; E78.5 Hyperlipidemia, unspecified; E66.9 Obesity, unspecified; Z68.34 Body mass index [BMI] 34.0-34.9, adult; T50.2X5A Adverse effect of carbonic-anhydrase inhibitors, benzothiadiazides and other diuretics, initial encounter; R07.9 Chest pain, unspecified; Z87.891 Personal history of nicotine dependence; Z88.8 Allergy status to other drugs, medicaments and biological substances; Z91.02 Food additives allergy status
CPT/HCPCS: 36415; 36416; 71045; 80048; 80053; 80069; 81003; 81015; 82436; 82533; 82550; 83605; 83690; 83735; 83880; 83930; 83935; 84100; 84133; 84300; 84443; 84484; 85025; 85060; 87040; 87086; 90471; 90686; 93005; 93306; 93460; 93567; 94760; 96365; 96366; 96368; 99152; 99153; A4217; C1769; G0008; J1200; J1644; J1650; J1956; J2001; J2250; J3480; J7512; Q9967

== ENCOUNTER 2019-06-27 14:20 | Emergency (ER) | payer OTHER ==
[2019-06-27 15:16] LABS: #Basophils 0.1 thou/uL (0.0-0.2); #Eosinphils 0.4 thou/uL (0.0-0.7); #Lymphocytes 2.2 thou/uL (1.20-3.40); #Monocytes 0.9 thou/uL (0.11-0.59); #Neutrophils 6.3 thou/uL (1.40-6.50); %Eosinophils 4.3 % (0.0-10.0); %Lymphocytes 21.8 % (21.0-51.0); %Monocytes 9.5 % (0.0-10.0); %Neutrophils 63.5 % (42.0-75.0); Hemoglobin 13.2 g/dL (12.0-16.0); Mean Corpuscular Hemoglobin 30.1 pg (27.0-31.0); Mean Corpuscular Volume 88.6 fL (78.0-98.0); Mean Platelet Volume 7.9 fL (7.4-10.4); Platelet Count 373 thou/uL (130-400); RBC Distribution Width 13.4 % (11.5-14.5); Red Blood Cell (RBC) Count 4.39 mill/uL (4.20-5.40); White Blood Cell (WBC) Count 9.9 thou/uL (4.8-10.8)
--- NOTE | 2019-06-27 15:16 | RAD ---
FRONTAL VIEW CHEST: COMPARISON: 05/11/2019. INDICATION: Dyspnea. FINDINGS: Bilateral mild pleural effusions are present. There is interstitial prominence of each lung as well as prominence of the pulmonary vasculature. Cardiac silhouette is stable. IMPRESSION: Bilateral pleural effusions and mild vascular congestion. POS: [facility]
[2019-06-27 15:41] LABS: ALT (SGPT) 25 U/L (8-55); AST (SGOT) 31 U/L (5-34); Albumin 3.9 g/dL (3.4-4.8); Alkaline Phosphatase 87 U/L (40-110); Anion Gap 15 mmol/L (10-20); BUN (Urea Nitrogen) 7 mg/dL (9.8-20.1); Bilirubin, Total 1.3 mg/dL (0.2-1.2); Calc. Creatinine Clearance 0 mL/min (70-130); Calcium 9.6 mg/dL (7.8-10.44); Carbon Dioxide 20 mmol/L (23-31); Chloride 105 mmol/L (98-107); Estimated GFR-MDRD 74; Globulin 3.4 g/dL (2.4-3.5); Glucose 107 mg/dL (80-115); Potassium 3.8 mmol/L (3.5-5.1); Protein, Total 7.3 g/dL (6.0-8.3); Sodium 136 mmol/L (136-145)
[2019-06-27 16:02] LABS: CKMB 1.4 ng/mL (0-6.6)
[2019-06-27] MEDS ORDERED: Aspirin Chewable 81 MG TAB ONE (19:09)
[2019-06-27] MEDS ORDERED: Furosemide 40 MG/4 ML VIAL ONE (19:09)
== END 2019-06-27 21:20 | disposition short-term general hospital (02) ==
LOC: ERS 14:20
DX: I35.0 Nonrheumatic aortic (valve) stenosis (principal); E87.70 Fluid overload, unspecified; E78.5 Hyperlipidemia, unspecified; I10 Essential (primary) hypertension
CPT/HCPCS: 36415; 71045; 80053; 82553; 83880; 84484; 85025; 93005; 96374; J1940

== ENCOUNTER 2021-07-22 11:22 | Outpatient (CLI) | payer BC | END 2021-07-22 11:23 | disposition home or self-care (01) | LOC: BICMAMMO 11:22 | PROVIDERS: ATTEND Family Medicine | DX: Z12.31 Encounter for screening mammogram for malignant neoplasm of breast (principal); Z91.89 Other specified personal risk factors, not elsewhere classified | CPT/HCPCS: 77063; 77067 ==

== ENCOUNTER 2022-07-11 10:29 | Observation (INO) | payer MEDICARE, OTHER ==
[2022-07-11] MEDS ORDERED: Meclizine HCl 25 MG TAB ONE (11:12)
[2022-07-11 11:34] LABS: #Eosinphils 0.2 thou/uL (0.0-0.7); #Lymphocytes 1.5 thou/uL (1.20-3.40); #Monocytes 0.8 thou/uL (0.11-0.59); #Neutrophils 10.5 thou/uL (1.40-6.50); %Basophils 0.4 % (0.0-1.0); %Eosinophils 1.5 % (0.0-10.0); %Lymphocytes 11.2 % (21.0-51.0); %Monocytes 6.3 % (0.0-10.0); %Neutrophils 80.6 % (42.0-75.0); Hemoglobin 11.9 g/dL (12.0-16.0); Mean Corpuscular HGB CONC 32.8 g/dL (32.0-36.0); Mean Corpuscular Hemoglobin 28.1 pg (27.0-31.0); Mean Corpuscular Volume 85.5 fl (78.0-98.0); Mean Platelet Volume 7.6 fL (7.4-10.4); Platelet Count 275 10x3/uL (130-400); RBC Distribution Width 15.7 % (11.5-14.5); Red Blood Cell (RBC) Count 4.22 mill/uL (4.20-5.40); White Blood Cell (WBC) Count 13.1 10x3/uL (4.8-10.8)
[2022-07-11 11:57] LABS: ALT (SGPT) 17 U/L (8-55); AST (SGOT) 24 U/L (5-34); Albumin 4.2 g/dL (3.4-4.8); Alkaline Phosphatase 88 U/L (40-110); Anion Gap 14 mmol/L (10-20); BUN (Urea Nitrogen) 9 mg/dL (9.8-20.1); Bilirubin, Total 0.7 mg/dL (0.2-1.2); Calc. Creatinine Clearance 0 mL/min (70-130); Calcium 9.6 mg/dL (7.8-10.44); Carbon Dioxide 24 mmol/L (23-31); Chloride 103 mmol/L (98-107); Estimated GFR 88; Globulin 3.8 g/dL (2.4-3.5); Glucose 132 mg/dL (80-115); Potassium 3.3 mmol/L (3.5-5.1); Sodium 138 mmol/L (136-145)
[2022-07-11] MEDS ORDERED: Ondansetron PF 4 MG/2 ML Vial ONE ×2 (12:38→18:29)
[2022-07-11] MEDS ORDERED: Aspirin 325 MG TAB ONE (13:31)
[2022-07-11] MEDS ORDERED: Diazepam 5 MG TAB ONE (14:11)
[2022-07-11] MEDS ORDERED: Ondansetron PF 4 MG/2 ML Vial IVP PRN (17:02)
[2022-07-11] MEDS ORDERED: Acetaminophen 325 MG TAB PO PRN (17:02)
[2022-07-11] MEDS ORDERED: Meclizine HCl 25 MG TAB PO PRN (17:04)
[2022-07-11] MEDS ORDERED: Electrolyte Replacement Protocol FS SCH (17:15)
[2022-07-11 19:27] LABS: SARS-CoV-2 NAA Rapid Test Not Detected (NotDetected)
[2022-07-11] MEDS: Sodium Chloride 0.9% 1,000 ML IV SCH (20:15)
[2022-07-11] MEDS: Ondansetron ODT 4 MG TAB PO PRN (20:16)
[2022-07-11] MEDS ORDERED: Rosuvastatin 10 MG TAB PO SCH (21:00)
[2022-07-11] MEDS ORDERED: Aspirin 81 mg Enteric Coated Tablet PO SCH (21:00)
[2022-07-11] MEDS ORDERED: Potassium Chloride 20 MEQ TAB PO SCH (21:45)
[2022-07-11] MEDS ORDERED: Famotidine/PF 20 mg/2ml Vial ONE (21:56)
[2022-07-11] MEDS ORDERED: Potassium Chloride 20 MEQ TAB ONE (21:56)
[2022-07-11] MEDS ORDERED: Aspirin Chewable 81 MG TAB ONE (21:56)
[2022-07-11] MEDS: Famotidine/PF 20 mg/2ml Vial SLOW IVP SCH (22:32)
[2022-07-11 23:29] VITALS: TEMP 98
[2022-07-12] MEDS ORDERED: Ondansetron ODT 4 MG TAB ONE (01:56)
[2022-07-12] MEDS: Ondansetron ODT 4 MG TAB PO PRN (02:44)
[2022-07-12] MEDS: Sodium Chloride 0.9% 1,000 ML IV SCH (03:15)
[2022-07-12 06:36] LABS: #Basophils 0.1 thou/uL (0.0-0.2); #Eosinphils 0.3 thou/uL (0.0-0.7); #Lymphocytes 2.5 thou/uL (1.20-3.40); #Monocytes 0.9 thou/uL (0.11-0.59); #Neutrophils 9.2 thou/uL (1.40-6.50); %Basophils 0.6 % (0.0-1.0); %Eosinophils 2.2 % (0.0-10.0); %Lymphocytes 19.3 % (21.0-51.0); %Monocytes 6.8 % (0.0-10.0); %Neutrophils 71.1 % (42.0-75.0); Hemoglobin 11.8 g/dL (12.0-16.0); Mean Corpuscular HGB CONC 32.9 g/dL (32.0-36.0); Mean Corpuscular Hemoglobin 28.9 pg (27.0-31.0); Mean Corpuscular Volume 87.9 fl (78.0-98.0); Mean Platelet Volume 7.5 fL (7.4-10.4); Platelet Count 269 10x3/uL (130-400); RBC Distribution Width 15.9 % (11.5-14.5); Red Blood Cell (RBC) Count 4.07 mill/uL (4.20-5.40); White Blood Cell (WBC) Count 12.9 10x3/uL (4.8-10.8)
[2022-07-12 06:53] LABS: Anion Gap 12 mmol/L (10-20); BUN (Urea Nitrogen) 5 mg/dL (9.8-20.1); Calc. Creatinine Clearance 0 mL/min (70-130); Calcium 9.3 mg/dL (7.8-10.44); Carbon Dioxide 26 mmol/L (23-31); Chloride 105 mmol/L (98-107); Estimated GFR 94; Glucose 99 mg/dL (80-115); Sodium 139 mmol/L (136-145)
[2022-07-12] MEDS ORDERED: Famotidine/PF 20 mg/2ml Vial ONE (07:22)
[2022-07-12] MEDS: Famotidine/PF 20 mg/2ml Vial SLOW IVP SCH (07:53)
[2022-07-12] MEDS ORDERED: Magnevist 469MG/ML 20 ML VIAL ONE (08:08)
[2022-07-12 08:10] VITALS: BP 145/66
== END 2022-07-12 14:14 | disposition home or self-care (01) ==
LOC: ERS 10:29 → ERHOLD 14:37
PROVIDERS: ADMIT Hospitalist; ATTEND Hospitalist
DX: R42 Dizziness and giddiness (principal); R11.2 Nausea with vomiting, unspecified; E87.6 Hypokalemia; D72.829 Elevated white blood cell count, unspecified; I10 Essential (primary) hypertension; E78.5 Hyperlipidemia, unspecified; Z79.82 Long term (current) use of aspirin; Z79.899 Other long term (current) drug therapy; Z88.1 Allergy status to other antibiotic agents; Z91.013 Allergy to seafood; Z91.041 Radiographic dye allergy status; Z95.2 Presence of prosthetic heart valve; Z20.822 Contact with and (suspected) exposure to COVID-19
CPT/HCPCS: 70450; 70553; 80048; 80053; 85025 ×2; 93005; 96374; 99285; U0002; 36415; 96375; 96376; A9579; G0378; J2405; J7050; Q0162; S0028

== ENCOUNTER 2022-08-11 13:24 | Outpatient (CLI) | payer MEDICARE, OTHER | END 2022-08-11 13:25 | disposition home or self-care (01) | LOC: BICMAMMO 13:24 | PROVIDERS: ATTEND Family Medicine | DX: Z12.31 Encounter for screening mammogram for malignant neoplasm of breast (principal); Z13.820 Encounter for screening for osteoporosis; Z78.0 Asymptomatic menopausal state; Z91.89 Other specified personal risk factors, not elsewhere classified; M85.89 Other specified disorders of bone density and structure, multiple sites | CPT/HCPCS: 77063; 77067; 77080 ==

== ENCOUNTER 2022-10-26 09:41 | Inpatient (IN) | payer MEDICARE, OTHER ==
[2022-10-26] MEDS ORDERED: Iopamidol-370 76% 500 ML MDV (1 ML CHARGE) ONE (10:31)
[2022-10-26] MEDS ORDERED: HYDROcodone/Acetaminophen 5/325 mg Tablet ONE (11:30)
[2022-10-26] MEDS ORDERED: Famotidine/PF 20 mg/2ml Vial ONE (12:18)
[2022-10-26] MEDS ORDERED: diphenhydrAMINE 50 MG/ML VIAL ONE (12:18)
[2022-10-26] MEDS ORDERED: methylPREDNISolone Sod Succ 40 MG VIAL ONE (12:18)
[2022-10-26 12:31] LABS: Hemoglobin 13.2 g/dL (12.0-16.0); Mean Corpuscular Hemoglobin 29.7 pg (27.0-31.0); Mean Corpuscular Volume 84.8 fl (78.0-98.0); Mean Platelet Volume 6.9 fL (7.4-10.4); Platelet Count 441 10x3/uL (130-400); RBC Distribution Width 14.4 % (11.5-14.5); Red Blood Cell (RBC) Count 4.44 mill/uL (4.20-5.40)
[2022-10-26 12:48] LABS: ALT (SGPT) 24 U/L (8-55); AST (SGOT) 32 U/L (5-34); Alkaline Phosphatase 86 U/L (40-110); Anion Gap 19 mmol/L (10-20); BUN (Urea Nitrogen) 10 mg/dL (9.8-20.1); CK (CPK) 313 U/L (29-168); Calc. Creatinine Clearance 0 mL/min (70-130); Calcium 9.8 mg/dL (7.8-10.44); Carbon Dioxide 21 mmol/L (23-31); Chloride 88 mmol/L (98-107); Estimated GFR 88; Globulin 4.2 g/dL (2.4-3.5); Glucose 94 mg/dL (80-115); Potassium 3.8 mmol/L (3.5-5.1); Protein, Total 8.2 g/dL (5.8-8.1); Sodium 124 mmol/L (136-145)
[2022-10-26 12:49] LABS: Band 2 % (5-11); Eosinophils 1 % (0-10); Lymphocytes 17 % (21-51); MDiff Complete? YES; Monocytes 8 % (0-10); Neutrophil 71 % (42-75); Platelet Morphology Comment Appears Increased; RBC Morphology Normal
[2022-10-26 13:40] LABS: Bacteria/HPF 4+ HPF (None Seen); Bilirubin Negative (Negative); Blood, Urine Negative (Negative); Clarity Turbid (Clear); Glucose, Urine (Dipstick) Normal (Negative); Ketone, Urine 20 mg/dL (Negative); Leukocyte 250 Leu/uL (Negative); Nitrite Negative (Negative); Protein, Urine (Dipstick) 20 mg/dL (Neg-Trace); RBC/HPF 0-3 HPF (0-3); Specific Gravity, Urine 1.009 (1.002-1.036); Urobilinogen Normal mg/dL (Less than 2)
[2022-10-26] MEDS ORDERED: Cefepime 2 GM VIAL ONE (14:50)
[2022-10-26] MEDS ORDERED: Aspirin Chewable 81 MG TAB ONE (14:50)
[2022-10-26] MEDS ORDERED: Meclizine HCl 25 MG TAB PO PRN (15:24)
[2022-10-26] MEDS ORDERED: Acetaminophen 325 MG TAB PO PRN (15:27)
[2022-10-26] MEDS ORDERED: Ondansetron PF 4 MG/2 ML Vial IVP PRN (15:27)
[2022-10-26] MEDS ORDERED: VANC/ABX IVPB PRN (15:31)
[2022-10-26] MEDS ORDERED: Vancomycin 1.5 GRAM/300 ML BAG 1.5 GM in Premix Bag 1 BAG IVPB SCH (15:45)
[2022-10-26 20:24] VITALS: BMI 30.1
[2022-10-26] MEDS: Lactated Ringer's 1,000 ML IV SCH (20:43)
[2022-10-26] MEDS: Rosuvastatin 20 MG TAB PO SCH (20:44)
[2022-10-26] MEDS: Amlodipine 10 MG TAB PO SCH (20:44)
[2022-10-26] MEDS: HYDROcodone/Acetaminophen 10/325 mg Tablet PO PRN (20:45)
[2022-10-26] MEDS: Famotidine 20 MG TAB PO SCH (20:46)
[2022-10-26] MEDS ORDERED: Vancomycin HCl 750 MG in Sodium Chloride 0.9% 250 ML 250 ML IVPB SCH (21:00)
[2022-10-26] MEDS ORDERED: Aspirin 81 mg Enteric Coated Tablet PO SCH (21:00)
[2022-10-27] MEDS: Cefepime 2 GM in Sodium Chloride 0.9% 100 ML IVPB SCH ×2 (03:55→14:58)
[2022-10-27] MEDS: VANCOMYCIN 1.25 GM/250 ML BAG 1.25 GM in Premix Bag 1 BAG IVPB SCH ×2 (04:44→17:00)
[2022-10-27 06:40] LABS: #Lymphocytes 1.4 thou/uL (1.20-3.40); #Monocytes 1.1 thou/uL (0.11-0.59); #Neutrophils 18.3 thou/uL (1.40-6.50); %Basophils 0.1 % (0.0-1.0); %Eosinophils 0.2 % (0.0-10.0); %Lymphocytes 6.8 % (21.0-51.0); %Monocytes 5.2 % (0.0-10.0); %Neutrophils 87.7 % (42.0-75.0); Hemoglobin 12.4 g/dL (12.0-16.0); Mean Corpuscular HGB CONC 33.2 g/dL (32.0-36.0); Mean Corpuscular Hemoglobin 28.4 pg (27.0-31.0); Mean Corpuscular Volume 85.3 fl (78.0-98.0); Mean Platelet Volume 6.9 fL (7.4-10.4); Platelet Count 403 10x3/uL (130-400); RBC Distribution Width 14.6 % (11.5-14.5); Red Blood Cell (RBC) Count 4.39 mill/uL (4.20-5.40); White Blood Cell (WBC) Count 20.8 10x3/uL (4.8-10.8)
[2022-10-27 06:59] LABS: Anion Gap 18 mmol/L (10-20); BUN (Urea Nitrogen) 11 mg/dL (9.8-20.1); Calc. Creatinine Clearance 128 mL/min (70-130); Calcium 9.5 mg/dL (7.8-10.44); Carbon Dioxide 20 mmol/L (23-31); Chloride 97 mmol/L (98-107); Estimated GFR 101; Glucose 137 mg/dL (80-115); Potassium 4.1 mmol/L (3.5-5.1); Sodium 131 mmol/L (136-145)
[2022-10-27] MEDS: Lactated Ringer's 1,000 ML IV SCH ×2 (07:44→17:00)
[2022-10-27] MEDS ORDERED: Cyanocobalamin (Vitamin B-12) 1,000 MCG TAB PO SCH (09:00)
[2022-10-27] MEDS: HYDROcodone/Acetaminophen 10/325 mg Tablet PO PRN ×2 (09:26→14:58)
[2022-10-27] MEDS: Cyanocobalamin (Vitamin B-12) 1,000 MCG TAB PO SCH (09:26)
[2022-10-27] MEDS: Famotidine 20 MG TAB PO SCH ×2 (09:26→20:00)
[2022-10-27] MEDS: ALISKIREN 300 MG PO SCH (09:26)
[2022-10-27] MEDS ORDERED: Morphine 2 MG/ML VIAL SLOW IVP PRN (12:35)
[2022-10-27] MEDS: Aspirin 81 mg Enteric Coated Tablet PO SCH (20:00)
[2022-10-27] MEDS: Rosuvastatin 20 MG TAB PO SCH (20:00)
[2022-10-27] MEDS: Metoprolol Tartrate 25 MG TAB PO SCH (20:00)
[2022-10-27] MEDS: Amlodipine 10 MG TAB PO SCH (20:00)
[2022-10-28] MEDS: Cefepime 2 GM in Sodium Chloride 0.9% 100 ML IVPB SCH ×2 (02:35→14:11)
[2022-10-28] MEDS: Lactated Ringer's 1,000 ML IV SCH ×2 (02:50→22:10)
[2022-10-28 04:53] LABS: #Basophils 0.1 thou/uL (0.0-0.2); #Eosinphils 0.3 thou/uL (0.0-0.7); #Lymphocytes 4.6 thou/uL (1.20-3.40); #Monocytes 1.5 thou/uL (0.11-0.59); #Neutrophils 14.8 thou/uL (1.40-6.50); %Basophils 0.5 % (0.0-1.0); %Eosinophils 1.5 % (0.0-10.0); %Lymphocytes 21.4 % (21.0-51.0); %Neutrophils 69.6 % (42.0-75.0); Hemoglobin 12.8 g/dL (12.0-16.0); Mean Corpuscular HGB CONC 33.7 g/dL (32.0-36.0); Mean Corpuscular Volume 86.2 fl (78.0-98.0); Platelet Count 469 10x3/uL (130-400); RBC Distribution Width 14.5 % (11.5-14.5); Red Blood Cell (RBC) Count 4.41 mill/uL (4.20-5.40); White Blood Cell (WBC) Count 21.3 10x3/uL (4.8-10.8)
[2022-10-28 05:12] LABS: Vancomycin, Trough 17.5 ug/mL
[2022-10-28 05:14] LABS: Hemoglobin A1c 5.6 % (4.0-6.0)
[2022-10-28 05:20] LABS: ALT (SGPT) 26 U/L (8-55); AST (SGOT) 27 U/L (5-34); Albumin 3.9 g/dL (3.4-4.8); Alkaline Phosphatase 85 U/L (40-110); Anion Gap 16 mmol/L (10-20); BUN (Urea Nitrogen) 10 mg/dL (9.8-20.1); Bilirubin, Direct 0.2 mg/dL (0.1-0.3); Bilirubin, Total 0.4 mg/dL (0.2-1.2); CK (CPK) 185 U/L (29-168); Calc. Creatinine Clearance 104 mL/min (70-130); Carbon Dioxide 25 mmol/L (23-31); Chloride 98 mmol/L (98-107); Estimated GFR 96; Glucose 98 mg/dL (80-115); Potassium 3.8 mmol/L (3.5-5.1); Protein, Total 7.7 g/dL (5.8-8.1); Sodium 135 mmol/L (136-145)
[2022-10-28] MEDS: VANCOMYCIN 1.25 GM/250 ML BAG 1.25 GM in Premix Bag 1 BAG IVPB SCH ×2 (05:21→17:09)
[2022-10-28] MEDS: Famotidine 20 MG TAB PO SCH ×2 (08:24→20:49)
[2022-10-28] MEDS: Metoprolol Tartrate 25 MG TAB PO SCH ×2 (08:24→20:49)
[2022-10-28] MEDS: Cyanocobalamin (Vitamin B-12) 1,000 MCG TAB PO SCH (08:24)
[2022-10-28] MEDS: ALISKIREN 300 MG PO SCH (08:26)
[2022-10-28] MEDS: HYDROcodone/Acetaminophen 10/325 mg Tablet PO PRN ×3 (08:55→23:07)
[2022-10-28] MEDS: Amlodipine 10 MG TAB PO SCH (20:49)
[2022-10-28] MEDS: Rosuvastatin 20 MG TAB PO SCH (20:49)
[2022-10-28] MEDS: Aspirin 81 mg Enteric Coated Tablet PO SCH (20:49)
[2022-10-29] MEDS: Cefepime 2 GM in Sodium Chloride 0.9% 100 ML IVPB SCH ×2 (02:58→14:02)
[2022-10-29] MEDS: VANCOMYCIN 1.25 GM/250 ML BAG 1.25 GM in Premix Bag 1 BAG IVPB SCH ×2 (04:15→16:12)
[2022-10-29] MEDS ORDERED: GoLYTELY 4,000 ml Bottle PO SCH (08:00)
[2022-10-29 08:05] LABS: #Basophils 0.1 thou/uL (0.0-0.2); #Eosinphils 0.4 thou/uL (0.0-0.7); #Lymphocytes 3.2 thou/uL (1.20-3.40); #Monocytes 1.2 thou/uL (0.11-0.59); #Neutrophils 8.2 thou/uL (1.40-6.50); %Basophils 0.7 % (0.0-1.0); %Eosinophils 2.8 % (0.0-10.0); %Lymphocytes 24.5 % (21.0-51.0); Hemoglobin 12.8 g/dL (12.0-16.0); Mean Corpuscular HGB CONC 33.3 g/dL (32.0-36.0); Mean Corpuscular Hemoglobin 28.8 pg (27.0-31.0); Mean Corpuscular Volume 86.5 fl (78.0-98.0); Platelet Count 405 10x3/uL (130-400); RBC Distribution Width 14.6 % (11.5-14.5); Red Blood Cell (RBC) Count 4.44 mill/uL (4.20-5.40)
[2022-10-29] MEDS: Famotidine 20 MG TAB PO SCH ×2 (08:19→20:13)
[2022-10-29] MEDS: Cyanocobalamin (Vitamin B-12) 1,000 MCG TAB PO SCH (08:19)
[2022-10-29] MEDS: ALISKIREN 300 MG PO SCH (08:19)
[2022-10-29] MEDS: HYDROcodone/Acetaminophen 10/325 mg Tablet PO PRN ×3 (08:19→21:47)
[2022-10-29] MEDS: Metoprolol Tartrate 25 MG TAB PO SCH ×2 (08:19→20:13)
[2022-10-29 08:59] LABS: Anion Gap 18 mmol/L (10-20); BUN (Urea Nitrogen) 7 mg/dL (9.8-20.1); Calc. Creatinine Clearance 110 mL/min (70-130); Calcium 9.7 mg/dL (7.8-10.44); Carbon Dioxide 21 mmol/L (23-31); Chloride 100 mmol/L (98-107); Estimated GFR 97; Glucose 101 mg/dL (80-115); Magnesium 1.9 mg/dL (1.6-2.6); Potassium 3.5 mmol/L (3.5-5.1); Sodium 135 mmol/L (136-145)
[2022-10-29] MEDS: Lactated Ringer's 1,000 ML IV SCH (10:29)
[2022-10-29] MEDS: Sodium Chloride 0.9% 1,000 ML IV SCH (11:15)
[2022-10-29] MEDS: Vancomycin 1 GM in Premix Bag 1 BAG IVPB SCH (16:29)
[2022-10-29] MEDS: Amlodipine 10 MG TAB PO SCH (20:13)
[2022-10-29] MEDS: Rosuvastatin 20 MG TAB PO SCH (20:13)
[2022-10-29] MEDS: Aspirin 81 mg Enteric Coated Tablet PO SCH (20:13)
[2022-10-30] MEDS: Cefepime 2 GM in Sodium Chloride 0.9% 100 ML IVPB SCH ×2 (02:48→15:35)
[2022-10-30] MEDS: Sodium Chloride 0.9% 1,000 ML IV SCH (03:18)
[2022-10-30] MEDS: Vancomycin 1 GM in Premix Bag 1 BAG IVPB SCH ×3 (04:54→20:08)
[2022-10-30 06:50] LABS: #Basophils 0.1 thou/uL (0.0-0.2); #Eosinphils 0.3 thou/uL (0.0-0.7); #Lymphocytes 3.3 thou/uL (1.20-3.40); #Monocytes 1.4 thou/uL (0.11-0.59); #Neutrophils 11.5 thou/uL (1.40-6.50); %Basophils 0.5 % (0.0-1.0); %Lymphocytes 20.1 % (21.0-51.0); %Monocytes 8.1 % (0.0-10.0); %Neutrophils 69.3 % (42.0-75.0); Hemoglobin 12.5 g/dL (12.0-16.0); Mean Corpuscular HGB CONC 34.4 g/dL (32.0-36.0); Mean Corpuscular Hemoglobin 29.4 pg (27.0-31.0); Mean Corpuscular Volume 85.5 fl (78.0-98.0); Mean Platelet Volume 7.4 fL (7.4-10.4); Platelet Count 439 10x3/uL (130-400); RBC Distribution Width 14.5 % (11.5-14.5); Red Blood Cell (RBC) Count 4.24 mill/uL (4.20-5.40); White Blood Cell (WBC) Count 16.6 10x3/uL (4.8-10.8)
[2022-10-30 07:13] LABS: Anion Gap 15 mmol/L (10-20); BUN (Urea Nitrogen) 7 mg/dL (9.8-20.1); Calc. Creatinine Clearance 117 mL/min (70-130); Calcium 9.3 mg/dL (7.8-10.44); Carbon Dioxide 23 mmol/L (23-31); Chloride 99 mmol/L (98-107); Estimated GFR 99; Glucose 125 mg/dL (80-115); Magnesium 1.6 mg/dL (1.6-2.6); Potassium 3.7 mmol/L (3.5-5.1); Sodium 133 mmol/L (136-145)
[2022-10-30] MEDS: Cyanocobalamin (Vitamin B-12) 1,000 MCG TAB PO SCH (09:07)
[2022-10-30] MEDS: Metoprolol Tartrate 25 MG TAB PO SCH (09:07)
[2022-10-30] MEDS: Famotidine 20 MG TAB PO SCH (09:07)
[2022-10-30] MEDS: ALISKIREN 300 MG PO SCH (09:09)
[2022-10-30] MEDS: HYDROcodone/Acetaminophen 10/325 mg Tablet PO PRN (09:13)
[2022-10-30] MEDS ORDERED: Heparin 5,000 UNITS/ML VIAL ONE (09:50)
[2022-10-30] MEDS ORDERED: Protamine Sulfate 50 MG/5 ML VIAL ONE (09:50)
[2022-10-30] MEDS ORDERED: Bupivacaine HCl 0.5%/Epinephrine 1:200,000/PF 30 ml Vial ONE (09:50)
[2022-10-30] MEDS ORDERED: fentaNYL PF 100 MCG/2 ML SYRINGE ONE ×2 (11:49→15:00)
[2022-10-30] MEDS ORDERED: Lidocaine 1% MPF 2 ML VIAL ONE (12:01)
[2022-10-30] MEDS ORDERED: Dexamethasone 20 MG/5 ML VIAL ONE (13:00)
[2022-10-30] MEDS ORDERED: Ondansetron PF 4 MG/2 ML Vial ONE (13:00)
[2022-10-30] MEDS ORDERED: Rocuronium Bromide 10 MG/ML (10ML VIAL) ONE (13:00)
[2022-10-30] MEDS ORDERED: PHENYLEPHRINE-NS 100 MCG/ML 10 ML SYRINGE ONE (13:00)
[2022-10-30] MEDS ORDERED: Glycopyrrolate 0.2 MG/ML 5 ML SYRINGE ONE (13:00)
[2022-10-30] MEDS ORDERED: PROPOFOL 200 MG/20 ML VIAL ONE (13:00)
[2022-10-30] MEDS ORDERED: NEOSTIGMINE 3 MG/3 ML SYR 3 MG/3 ML SYRINGE ONE (13:00)
[2022-10-30] MEDS ORDERED: Heparin 10,000 UNITS/ 10 ML VIAL ONE (13:17)
[2022-10-30] MEDS ORDERED: fentaNYL 50 mcg/mL 1 mL Vial ONE ×2 (16:21→17:48)
[2022-10-30] MEDS ORDERED: Promethazine HCl 25 MG/ML VIAL IVPB PRN (16:30)
[2022-10-30] MEDS ORDERED: Ondansetron PF 4 MG/2 ML Vial IVP PRN (16:30)
[2022-10-30] MEDS ORDERED: NOREPINEPHRINE 8 MG/250 ML-D5W 250 ML IVPB PRN (16:30)
[2022-10-30] MEDS ORDERED: Insulin Regular 300 UNITS/3 ML VIAL SC PRN (16:30)
[2022-10-30] MEDS ORDERED: fentaNYL 50 mcg/mL 1 mL Vial SLOW IVP PRN ×2 (16:30→17:00)
[2022-10-30] MEDS ORDERED: Fentanyl 100 MCG/2 ML VIAL SLOW IVP PRN (16:30)
[2022-10-30] MEDS ORDERED: Ipratropium/Albuterol 3 ML NEB NEB PRN (16:30)
[2022-10-30] MEDS ORDERED: niCARdipine 25 MG in Sodium Chloride 0.9% 250 ML 250 ML IVPB PRN (16:30)
[2022-10-30] MEDS ORDERED: Promethazine HCl 6.25 MG in Sodium Chloride 0.9% 50 ML IVPB PRN (16:58)
[2022-10-30 17:38] LABS: Vancomycin, Trough 12.4 ug/mL
[2022-10-30] MEDS: Ketorolac Tromethamine 30 MG/ML VIAL IVP SCH ×2 (19:43→22:58)
[2022-10-30] MEDS: Lactated Ringer's 1,000 ML IV SCH ×2 (19:44→23:02)
[2022-10-31] MEDS: Cefepime 2 GM in Sodium Chloride 0.9% 100 ML IVPB SCH ×2 (03:30→14:57)
[2022-10-31 03:31] LABS: #Lymphocytes 0.9 thou/uL (1.20-3.40); #Monocytes 0.7 thou/uL (0.11-0.59); #Neutrophils 14.5 thou/uL (1.40-6.50); %Basophils 0.1 % (0.0-1.0); %Lymphocytes 5.4 % (21.0-51.0); %Monocytes 4.6 % (0.0-10.0); Hemoglobin 11.2 g/dL (12.0-16.0); Mean Corpuscular HGB CONC 34.5 g/dL (32.0-36.0); Mean Corpuscular Hemoglobin 29.4 pg (27.0-31.0); Mean Corpuscular Volume 85.3 fl (78.0-98.0); Mean Platelet Volume 7.4 fL (7.4-10.4); Platelet Count 387 10x3/uL (130-400); RBC Distribution Width 14.5 % (11.5-14.5); Red Blood Cell (RBC) Count 3.81 mill/uL (4.20-5.40); White Blood Cell (WBC) Count 16.1 10x3/uL (4.8-10.8)
[2022-10-31 03:58] LABS: Anion Gap 17 mmol/L (10-20); BUN (Urea Nitrogen) 10 mg/dL (9.8-20.1); Calc. Creatinine Clearance 112 mL/min (70-130); Calcium 9.1 mg/dL (7.8-10.44); Carbon Dioxide 20 mmol/L (23-31); Chloride 102 mmol/L (98-107); Estimated GFR 98; Glucose 116 mg/dL (80-115); Potassium 4.1 mmol/L (3.5-5.1); Sodium 135 mmol/L (136-145)
[2022-10-31] MEDS: Lactated Ringer's 1,000 ML IV SCH ×3 (04:12→20:15)
[2022-10-31] MEDS: Ketorolac Tromethamine 30 MG/ML VIAL IVP SCH (05:19)
[2022-10-31] MEDS: Vancomycin 1 GM in Premix Bag 1 BAG IVPB SCH (07:46)
[2022-10-31] MEDS ORDERED: Aspirin 81 mg Enteric Coated Tablet PO SCH (10:15)
[2022-10-31 19:26] LABS: Vancomycin, Trough 16.6 ug/mL
[2022-10-31] MEDS ORDERED: Acetaminophen 325 MG TAB PO PRN (21:06)
[2022-10-31] MEDS: HYDROcodone/Acetaminophen 5/325 mg Tablet PO PRN (21:12)
[2022-10-31] MEDS ORDERED: hydrALAZINE 20 MG/ML VIAL SLOW IVP PRN (23:59)
[2022-11-01] MEDS: Labetalol HCl 100 MG/20 ML VIAL SLOW IVP PRN ×2 (00:13→06:08)
[2022-11-01] MEDS: HYDROcodone/Acetaminophen 5/325 mg Tablet PO PRN ×3 (01:14→12:39)
[2022-11-01] MEDS: Cefepime 2 GM in Sodium Chloride 0.9% 100 ML IVPB SCH (03:00)
[2022-11-01 04:19] LABS: #Eosinphils 0.2 thou/uL (0.0-0.7); #Lymphocytes 2.2 thou/uL (1.20-3.40); #Monocytes 1.2 thou/uL (0.11-0.59); #Neutrophils 9.3 thou/uL (1.40-6.50); %Basophils 0.3 % (0.0-1.0); %Eosinophils 1.3 % (0.0-10.0); %Monocytes 9.5 % (0.0-10.0); %Neutrophils 71.8 % (42.0-75.0); Hemoglobin 11.9 g/dL (12.0-16.0); Mean Corpuscular HGB CONC 27.7 g/dL (32.0-36.0); Mean Corpuscular Hemoglobin 24.1 pg (27.0-31.0); Mean Corpuscular Volume 87.2 fl (78.0-98.0); Mean Platelet Volume 7.3 fL (7.4-10.4); Platelet Count 275 10x3/uL (130-400); Red Blood Cell (RBC) Count 4.94 mill/uL (4.20-5.40); White Blood Cell (WBC) Count 12.9 10x3/uL (4.8-10.8)
[2022-11-01 04:21] LABS: Anion Gap 14 mmol/L (10-20); BUN (Urea Nitrogen) 10 mg/dL (9.8-20.1); Calc. Creatinine Clearance 121 mL/min (70-130); Calcium 8.9 mg/dL (7.8-10.44); Carbon Dioxide 22 mmol/L (23-31); Chloride 103 mmol/L (98-107); Estimated GFR 100; Glucose 85 mg/dL (80-115); Potassium 3.6 mmol/L (3.5-5.1); Sodium 135 mmol/L (136-145)
[2022-11-01] MEDS: Lactated Ringer's 1,000 ML IV SCH (06:43)
[2022-11-01] MEDS: Metoprolol Tartrate 25 MG TAB PO SCH ×2 (08:38→20:42)
[2022-11-01] MEDS: Aspirin 81 mg Enteric Coated Tablet PO SCH (08:38)
[2022-11-02 06:24] LABS: Anion Gap 19 mmol/L (10-20); BUN (Urea Nitrogen) 7 mg/dL (9.8-20.1); Calc. Creatinine Clearance 109 mL/min (70-130); Calcium 9.4 mg/dL (7.8-10.44); Carbon Dioxide 22 mmol/L (23-31); Chloride 97 mmol/L (98-107); Estimated GFR 98; Glucose 91 mg/dL (80-115); Potassium 3.6 mmol/L (3.5-5.1); Sodium 134 mmol/L (136-145)
[2022-11-02] MEDS ORDERED: Amlodipine 10 MG TAB PO SCH ×2 (08:30→09:00)
[2022-11-02 08:49] LABS: #Basophils 0.1 thou/uL (0.0-0.2); #Eosinphils 0.3 thou/uL (0.0-0.7); #Lymphocytes 2.3 thou/uL (1.20-3.40); #Monocytes 1.6 thou/uL (0.11-0.59); #Neutrophils 10.8 thou/uL (1.40-6.50); %Basophils 0.4 % (0.0-1.0); %Eosinophils 1.9 % (0.0-10.0); %Lymphocytes 15.3 % (21.0-51.0); %Monocytes 10.4 % (0.0-10.0); Hemoglobin 11.4 g/dL (12.0-16.0); Mean Corpuscular HGB CONC 33.5 g/dL (32.0-36.0); Mean Corpuscular Volume 86.5 fl (78.0-98.0); Mean Platelet Volume 7.8 fL (7.4-10.4); Platelet Count 378 10x3/uL (130-400); RBC Distribution Width 14.7 % (11.5-14.5); Red Blood Cell (RBC) Count 3.92 mill/uL (4.20-5.40)
[2022-11-02] MEDS: Metoprolol Tartrate 25 MG TAB PO SCH ×2 (08:56→20:22)
[2022-11-02] MEDS: Aspirin 81 mg Enteric Coated Tablet PO SCH (08:56)
[2022-11-02] MEDS: HYDROcodone/Acetaminophen 5/325 mg Tablet PO PRN ×3 (08:59→20:23)
[2022-11-02] MEDS ORDERED: Furosemide 20 MG TAB PO SCH (17:45)
[2022-11-03 07:52] VITALS: BP 147/74; TEMP 98
[2022-11-03] MEDS ORDERED: Amlodipine 5 MG TAB PO SCH (09:00)
[2022-11-03] MEDS: Metoprolol Tartrate 25 MG TAB PO SCH (10:13)
[2022-11-03] MEDS: Aspirin 81 mg Enteric Coated Tablet PO SCH (10:13)
== END 2022-11-03 13:47 | disposition home health service (06) | DRG 271 ==
LOC: ERS 09:41 → ERHOLD 15:04 → T4-B 20:23 → CCU 10-30 18:03 → SURG A 11-01 16:06
PROVIDERS: ADMIT Internal Medicine; ATTEND Hospitalist
PROC: 04CD0ZZ Extirpation of Matter from Left Common Iliac Artery, Open Approach (ICD-10-PCS; principal; 2022-10-30)
PROC: 04UD0JZ Supplement Left Common Iliac Artery with Synthetic Substitute, Open Approach (ICD-10-PCS; 2022-10-30)
DX: I73.9 Peripheral vascular disease, unspecified (principal); E87.1 Hypo-osmolality and hyponatremia; N30.00 Acute cystitis without hematuria; I10 Essential (primary) hypertension; E78.5 Hyperlipidemia, unspecified; Z95.2 Presence of prosthetic heart valve; Z87.440 Personal history of urinary (tract) infections; Z79.82 Long term (current) use of aspirin; Z79.899 Other long term (current) drug therapy; Z82.49 Family history of ischemic heart disease and other diseases of the circulatory system; Z90.89 Acquired absence of other organs; Z91.041 Radiographic dye allergy status; Z88.1 Allergy status to other antibiotic agents; E86.0 Dehydration; E66.9 Obesity, unspecified; Z68.29 Body mass index [BMI] 29.0-29.9, adult
CPT/HCPCS: 36415; 36416; 75635; 80048; 80053; 80076; 80202; 81003; 81015; 82550; 83036; 83605; 83735; 85025; 86850; 86900; 86901; 87040; 87086; 96365; 96375; C1889; J0692; J1100; J1200; J1642; J1644; J1650; J1885; J2405; J2704; J2720; J2920; J3010; J3370; J3370-JW; J3490; J7050; J7120; Q9967; S0028

== ENCOUNTER 2023-05-17 10:12 | Observation (INO) | payer MEDICARE, OTHER ==
[2023-05-17] MEDS ORDERED: Nitroglycerin 2% Ointment 1 INCH/1 GM Packet ONE (11:29)
[2023-05-17] MEDS ORDERED: Aspirin Chewable 81 MG TAB ONE (11:29)
[2023-05-17 11:50] LABS: #Basophils 0.1 thou/uL (0.0-0.2); #Eosinphils 0.2 thou/uL (0.0-0.7); #Monocytes 0.9 thou/uL (0.11-0.59); #Neutrophils 10.5 thou/uL (1.40-6.50); %Basophils 0.5 % (0.0-1.0); %Eosinophils 1.4 % (0.0-10.0); %Lymphocytes 12.3 % (21.0-51.0); %Monocytes 6.9 % (0.0-10.0); %Neutrophils 78.6 % (42.0-75.0); Hematocrit 39.5 % (36.0-47.0); Hemoglobin 12.9 g/dL (12.0-16.0); Mean Corpuscular HGB CONC 32.7 g/dL (32.0-36.0); Mean Corpuscular Hemoglobin 27.7 pg (27.0-31.0); Mean Corpuscular Volume 84.9 fl (78.0-98.0); Mean Platelet Volume 9.9 fL (7.4-10.4); Platelet Count 250 10x3/uL (130-400); RBC Distribution Width 15.5 % (11.5-14.5); Red Blood Cell (RBC) Count 4.65 mill/uL (4.20-5.40); White Blood Cell (WBC) Count 13.4 10x3/uL (4.8-10.8)
[2023-05-17 12:14] LABS: ALT (SGPT) 15 U/L (8-55); AST (SGOT) 23 U/L (5-34); Albumin 4.7 g/dL (3.4-4.8); Alkaline Phosphatase 93 U/L (40-110); Anion Gap 16 mmol/L (10-20); BUN (Urea Nitrogen) 17 mg/dL (9.8-20.1); Bilirubin, Total 0.8 mg/dL (0.2-1.2); Calc. Creatinine Clearance 0 mL/min (70-130); Calcium 9.9 mg/dL (7.8-10.44); Carbon Dioxide 23 mmol/L (23-31); Chloride 102 mmol/L (98-107); Estimated GFR 71; Globulin 3.4 g/dL (2.4-3.5); Glucose 111 mg/dL (80-115); Lipase 37 U/L (8-78); Potassium 3.7 mmol/L (3.5-5.1); Protein, Total 8.1 g/dL (5.8-8.1); Sodium 137 mmol/L (136-145)
[2023-05-17 12:22] LABS: Troponin I Less than 0.010 ng/mL (< 0.028)
[2023-05-17] MEDS ORDERED: hydrALAZINE 20 MG/ML VIAL SLOW IVP PRN (14:22)
[2023-05-17 14:52] VITALS: BMI 30.4
[2023-05-17 18:23] LABS: Troponin I 1.532 ng/mL (< 0.028)
[2023-05-17] MEDS ORDERED: Metoprolol Tartrate 5 MG/5 ML VIAL IVP PRN (18:24)
[2023-05-17 19:03] LABS: Magnesium 1.9 mg/dL (1.6-2.6)
[2023-05-17] MEDS: predniSONE 50 MG TAB PO SCH (20:11)
[2023-05-17] MEDS ORDERED: Communication Order-Pharmacy FS SCH (20:15)
[2023-05-17] MEDS: Sodium Chloride 0.9% 1,000 ML IV SCH (20:16)
[2023-05-17] MEDS ORDERED: Aspirin 81 mg Enteric Coated Tablet PO SCH (21:00)
[2023-05-17] MEDS ORDERED: Rosuvastatin 10 MG TAB PO SCH (21:00)
[2023-05-17] MEDS ORDERED: Amlodipine 10 MG TAB PO SCH (21:00)
[2023-05-18 04:15] LABS: #Eosinphils 0.1 thou/uL (0.0-0.7); #Monocytes 0.1 thou/uL (0.11-0.59); #Neutrophils 5.1 thou/uL (1.40-6.50); %Basophils 0.6 % (0.0-1.0); %Eosinophils 0.8 % (0.0-10.0); %Lymphocytes 16.7 % (21.0-51.0); %Monocytes 1.6 % (0.0-10.0); %Neutrophils 80.1 % (42.0-75.0); Hematocrit 37.6 % (36.0-47.0); Hemoglobin 12.4 g/dL (12.0-16.0); Mean Corpuscular Hemoglobin 28.2 pg (27.0-31.0); Mean Corpuscular Volume 85.6 fl (78.0-98.0); Mean Platelet Volume 10.2 fL (7.4-10.4); Platelet Count 247 10x3/uL (130-400); RBC Distribution Width 15.3 % (11.5-14.5); Red Blood Cell (RBC) Count 4.39 mill/uL (4.20-5.40); White Blood Cell (WBC) Count 6.3 10x3/uL (4.8-10.8)
[2023-05-18 04:49] LABS: Anion Gap 14 mmol/L (10-20); BUN (Urea Nitrogen) 14 mg/dL (9.8-20.1); Calc. Creatinine Clearance 87 mL/min (70-130); Calcium 9.3 mg/dL (7.8-10.44); Carbon Dioxide 21 mmol/L (23-31); Chloride 106 mmol/L (98-107); Estimated GFR 78; Glucose 156 mg/dL (80-115); Potassium 3.9 mmol/L (3.5-5.1); Sodium 137 mmol/L (136-145)
[2023-05-18] MEDS: Sodium Chloride 0.9% 1,000 ML IV SCH (05:51)
[2023-05-18] MEDS: predniSONE 50 MG TAB PO SCH (05:51)
[2023-05-18] MEDS ORDERED: diphenhydrAMINE 50 MG/ML VIAL ONE (07:14)
[2023-05-18] MEDS ORDERED: Verapamil 5 MG/2 ML VIAL ONE (07:14)
[2023-05-18] MEDS ORDERED: Heparin 10,000 UNITS/ 10 ML VIAL ONE (07:15)
[2023-05-18] MEDS ORDERED: Lidocaine 1% (PF) 30 ML VIAL ONE (07:15)
[2023-05-18] MEDS ORDERED: Nitroglycerin 50 MG/250 ML BOT 250 ML ONE (07:15)
[2023-05-18] MEDS ORDERED: Pantoprazole 40 MG VIAL IVP SCH (08:00)
[2023-05-18] MEDS ORDERED: diphenhydrAMINE 50 MG/ML VIAL IVP SCH (08:00)
[2023-05-18] MEDS ORDERED: EPINEPHrine 1 MG/10 ML Abboject SYRINGE ONE (08:24)
[2023-05-18] MEDS ORDERED: Iopamidol 370 76% 100 ML VIAL ONE (10:40)
[2023-05-18 12:09] VITALS: BP 147/69; TEMP 97.8
[2023-05-18] MEDS ORDERED: Metoprolol Tartrate 25 MG TAB PO SCH ×3 (14:00→21:00)
[2023-05-18 15:01] LABS: Troponin I 2.604 ng/mL (< 0.028)
== END 2023-05-18 15:33 | disposition home or self-care (01) ==
LOC: ERS 10:12 → ERHOLD 12:52 → 2SW 16:48
PROVIDERS: ADMIT Internal Medicine; ATTEND Family Medicine
DX: R07.89 Other chest pain (principal); K21.9 Gastro-esophageal reflux disease without esophagitis; I21.4 Non-ST elevation (NSTEMI) myocardial infarction; E87.8 Other disorders of electrolyte and fluid balance, not elsewhere classified; I10 Essential (primary) hypertension; Z79.82 Long term (current) use of aspirin; Z88.1 Allergy status to other antibiotic agents; Z91.013 Allergy to seafood; Z91.041 Radiographic dye allergy status; Z87.891 Personal history of nicotine dependence
CPT/HCPCS: 36415; 71045; 80048; 80053; 83690; 83735; 83880; 84484; 85025; 93005; 93454; 96372; C1769; C1894; G0378; J0171; J1200; J1644; J1650; J2001; J7050; J7512

== ENCOUNTER 2023-06-07 06:04 | Day surgery (SDC) | payer MEDICARE, OTHER ==
[2023-06-06 15:25] VITALS: BMI 29.9
[2023-06-07] MEDS ORDERED: PROPOFOL 40 ML ONE (06:25)
[2023-06-07] MEDS ORDERED: Lidocaine 1% PF 5 ML VIAL ONE (06:26)
[2023-06-07] MEDS ORDERED: PROPOFOL 20 ML ONE (08:18)
== END 2023-06-07 09:38 | disposition home or self-care (01) ==
LOC: SDC 06:04
PROVIDERS: ATTEND Internal Medicine Gastroenterology
PROC: 0DBM8ZZ Excision of Descending Colon, Via Natural or Artificial Opening Endoscopic (ICD-10-PCS; principal; 2023-06-07)
DX: Z12.11 Encounter for screening for malignant neoplasm of colon (principal); D12.4 Benign neoplasm of descending colon; A04.72 Enterocolitis due to Clostridium difficile, not specified as recurrent; K57.30 Diverticulosis of large intestine without perforation or abscess without bleeding; K21.9 Gastro-esophageal reflux disease without esophagitis; I10 Essential (primary) hypertension; F10.90 Alcohol use, unspecified, uncomplicated; Z95.1 Presence of aortocoronary bypass graft; Z79.899 Other long term (current) drug therapy; Z91.040 Latex allergy status; Z88.8 Allergy status to other drugs, medicaments and biological substances; Z87.891 Personal history of nicotine dependence
CPT/HCPCS: 88305; J2704

== ENCOUNTER 2024-01-01 11:13 | Outpatient (CLI) | payer MEDICARE, OTHER | END 2024-01-01 11:14 | disposition home or self-care (01) | LOC: BICMAMMO 11:13 | PROVIDERS: ATTEND Family Medicine | DX: Z12.31 Encounter for screening mammogram for malignant neoplasm of breast (principal); Z91.89 Other specified personal risk factors, not elsewhere classified | CPT/HCPCS: 77063; 77067 ==

== ENCOUNTER 2024-03-19 12:48 | Outpatient (CLI) | payer MEDICARE, OTHER | END 2024-03-19 12:49 | disposition home or self-care (01) | LOC: BICRAD 12:48 | PROVIDERS: ATTEND Family Medicine | DX: S39.012A Strain of muscle, fascia and tendon of lower back, initial encounter (principal); M47.816 Spondylosis without myelopathy or radiculopathy, lumbar region | CPT/HCPCS: 72100 ==